=== PATIENT | male | born 1945 | race Caucasian/White ===

== ENCOUNTER → 2016-11-23 | Outpatient (CLI) | payer MEDICARE, OTHER ==
[~2016-11-23] MED LIST: ACTI300C PO; ACYC400T PO; AKWASOL OU; AMBI5TAB PO; AMIL5TA PO; ASPI81TA21 PO; ATIV1TAB10 PO; AZIT250T3 PO; BENZ100C5 PO; BIOTSPR PO; CO Q100C10 PO; CORT10TA PO; CORT20TA PO; COZA50TA PO; DIOV320T PO; DITR1TAB PO; ENAB15TA PO; ERGO500014 PO; FLAXMIS XX; FLON0.054; FOLI1TAB2 PO; GAS-80CH PO; HYDR1OI TOP; IMAT100TAB PO; K-TA10TA2 PO; LACT3000 PO; LEVO1SOL3 PO; LEVO500T32 PO; LOPE2TAB3 PO; LOSA25TA8 PO; MAGN20IN4 IJ; MAGN20IN4 IV; MED REC COMPLETE XX; MEDR4TAB PO; METO25TAB PO; MG PLUS PROTEIN; MG PLUS PROTEIN PO; MULTCAP PO; MULTCAP11 PO; NITR0.4D6 TD; NOXA1TAB PO; PANT40TA2 PO; PENI50TA PO; PENT30IN INH; PHOS1TAB3 OR; PROT0.1O TOP; SIMV20TA2 PO; TACR0.5C3 PO; TACR1CAP3 PO; TESS100C PO; TOVI8TAB PO; TRAM50TA2 PO; TRIA1CR TOP; VFEN200T PO; VITA100037 PO; VITA200016 PO; VORI200T5 PO; ZOFR20TA PO; ZOFR8TAB PO; ZYRTTAB2 PO; [UNRECOGNIZED DRUG - CODE] INJ; [UNRECOGNIZED DRUG - CODE] IV
== END ==
LOC: M LAB 15:22
PROVIDERS: ATTEND Urology
DX: C61 Malignant neoplasm of prostate (principal)

== ENCOUNTER → 2016-12-12 | Outpatient (CLI) | payer MEDICARE, OTHER | LOC: M LAB 15:23 | PROVIDERS: ATTEND Family Medicine | DX: Z01.812 Encounter for preprocedural laboratory examination (principal); R82.99 Other abnormal findings in urine; N28.9 Disorder of kidney and ureter, unspecified ==

== ENCOUNTER 2016-12-25 12:45 | Outpatient (RCR) | payer MEDICARE, OTHER | END 2016-12-26 | LOC: M PT 12:45 | PROVIDERS: ATTEND Physician Assistant Medical | DX: Z51.89 Encounter for other specified aftercare (principal); C92.00 Acute myeloblastic leukemia, not having achieved remission; R53.81 Other malaise | CPT/HCPCS: 97110; 97140; 97161; G8978; G8979 ==

== ENCOUNTER 2017-01-23 09:45 | Outpatient (RCR) | payer MEDICARE, OTHER ==
[~2017-01-23 09:45] MED LIST changes: +AZIT-12 PO; -AZIT250T3 PO; -FOLI1TAB2 PO; +FOLI1TAB4 PO; -LEVO1SOL3 PO; +LEVO25SO PO; +LEVO500T3 PO; -LEVO500T32 PO; -ZYRTTAB2 PO; +ZYRTTAB8 PO
== END 2017-01-25 ==
LOC: M PT 09:45
PROVIDERS: ATTEND Physician Assistant Medical
DX: Z51.89 Encounter for other specified aftercare (principal); C92.00 Acute myeloblastic leukemia, not having achieved remission; R53.81 Other malaise; M62.81 Muscle weakness (generalized)
CPT/HCPCS: 97110; 97140; 97165; G8978; G8979; G8984; G8985

== ENCOUNTER → 2017-02-25 | Outpatient (RCR) | payer MEDICARE, OTHER | END | disposition home or self-care (01) | LOC: M PT 01-30 09:52 → M OT 02-06 08:45 → M PT 02-18 09:10 → M OT 02-20 09:00 | PROVIDERS: ATTEND Physician Assistant Medical | DX: Z51.89 Encounter for other specified aftercare (principal); C92.00 Acute myeloblastic leukemia, not having achieved remission; R53.81 Other malaise | CPT/HCPCS: 97010; 97110; 97140; G8978; G8979; G8980; G8984; G8985; G8986 ==

== ENCOUNTER → 2017-02-25 | Outpatient (CLI) | payer MEDICARE, OTHER ==
[~2017-02-25] MED LIST changes: +ALBUTEROL SULFATE 2.5 MG/0.5 ML INH NEB SOLN NEB ONE; +PENTAMIDINE ISETH NEB 300 MG SOLN VIAL INH ONE
== END ==
LOC: M CARPUL 14:05
PROVIDERS: ATTEND Internal Medicine Medical Oncology
DX: C93.00 Acute monoblastic/monocytic leukemia, not having achieved remission (principal); D84.9 Immunodeficiency, unspecified

== ENCOUNTER → 2017-03-15 | Outpatient (CLI) | payer MEDICARE, OTHER ==
[~2017-03-15] MED LIST changes: -ALBUTEROL SULFATE 2.5 MG/0.5 ML INH NEB SOLN NEB ONE; -PENTAMIDINE ISETH NEB 300 MG SOLN VIAL INH ONE
== END ==
LOC: M LAB 15:14
PROVIDERS: ATTEND Urology
DX: Z01.812 Encounter for preprocedural laboratory examination (principal); N32.81 Overactive bladder; R39.15 Urgency of urination

== ENCOUNTER → 2017-04-24 | Outpatient (CLI) | payer MEDICARE, OTHER ==
[~2017-04-24] MED LIST changes: +PENTAMIDINE ISETH NEB 300 MG SOLN VIAL INH ONE
== END ==
LOC: M CARPUL 14:55
PROVIDERS: ATTEND Internal Medicine Medical Oncology
DX: C93.00 Acute monoblastic/monocytic leukemia, not having achieved remission (principal)

== ENCOUNTER → 2017-06-06 | Outpatient (CLI) | payer MEDICARE, OTHER | LOC: M CARPUL 13:06 | PROVIDERS: ATTEND Internal Medicine Medical Oncology | DX: D89.811 Chronic graft-versus-host disease (principal); C92.91 Myeloid leukemia, unspecified in remission; E83.111 Hemochromatosis due to repeated red blood cell transfusions ==

== ENCOUNTER → 2017-07-04 | Outpatient (CLI) | payer MEDICARE, OTHER | LOC: M CARPUL 11:00 | PROVIDERS: ATTEND Internal Medicine Medical Oncology | DX: Z51.81 Encounter for therapeutic drug level monitoring (principal); Z79.899 Other long term (current) drug therapy ==

== ENCOUNTER 2017-12-27 13:12 | Outpatient (RCR) | payer MEDICARE, OTHER | END 2018-01-25 | LOC: M OT 01-01 13:13 → M PT 01-06 12:46 → M OT 01-08 12:58 → M PT 01-16 13:57 → M OT 13:12 → M PT 01-06 12:46 → M OT 13:12 | DX: Z51.89 Encounter for other specified aftercare (principal); Z94.81 Bone marrow transplant status | CPT/HCPCS: 97110 ==

== ENCOUNTER 2018-01-30 11:23 | Outpatient (RCR) | payer MEDICARE, OTHER | END 2018-02-25 | LOC: M PT 11:23 | DX: Z51.89 Encounter for other specified aftercare (principal); R53.1 Weakness; Z94.81 Bone marrow transplant status | CPT/HCPCS: 97110 ==

== ENCOUNTER → 2018-05-02 | Outpatient (REF) | payer MEDICARE, OTHER ==
[2018-05-02 18:47] LABS: AMORPHOUS SEDIMENT SMALL (NEGATIVE); APPEARANCE, URINE TURBID (CLEAR); BACTERIA, URINE AUTO NEGATIVE (NEGATIVE); BILIRUBIN, URINE AUTO NEGATIVE (NEGATIVE); BLOOD, URINE BLOOD 1+ (NEGATIVE); COLOR, URINE AMBER (YELLOW); GLUCOSE, URINE (UA) AUTO NEGATIVE (NEGATIVE); KETONE, URINE AUTO NEGATIVE (NEGATIVE); LEUKOCYTE ESTERASE, URINE AUTO NEGATIVE (NEGATIVE); MUCUS, URINE LARGE (NEGATIVE); NITRITE, URINE AUTO NEGATIVE (NEGATIVE); PROTEIN, URINE AUTO 2+ mg/dL (NEGATIVE); RBC, URINE AUTO 5 /HPF (0-3); SQUAMOUS EPITHELIAL CELL UR AU 0 /HPF (0-6); UROBILINOGEN, URINE AUTO 0.2 mg/dL (0.0-2.0); WBC, URINE AUTO 1 /HPF (0-3)
== END ==
LOC: M LAB REF 17:06
DX: Z01.818 Encounter for other preprocedural examination (principal)
CPT/HCPCS: 81001

== ENCOUNTER → 2018-05-19 | Outpatient (CLI) | payer MEDICARE, OTHER ==
[~2018-05-19] MED LIST changes: -ACTI300C PO; -ACYC400T PO; -AKWASOL OU; +ALBUTEROL SULFATE 2.5 MG/0.5 ML INH NEB SOLN INH; -AMBI5TAB PO; -AMIL5TA PO; -ASPI81TA21 PO; -ATIV1TAB10 PO; -AZIT-12 PO; -BENZ100C5 PO; -BIOTSPR PO; -CO Q100C10 PO; -CORT10TA PO; -CORT20TA PO; -COZA50TA PO; -DIOV320T PO; -DITR1TAB PO; -ENAB15TA PO; -ERGO500014 PO; -FLAXMIS XX; -FLON0.054; -FOLI1TAB4 PO; -GAS-80CH PO; -HYDR1OI TOP; -IMAT100TAB PO; -K-TA10TA2 PO; -LACT3000 PO; -LEVO25SO PO; -LEVO500T3 PO; -LOPE2TAB3 PO; -LOSA25TA8 PO; -MAGN20IN4 IJ; -MAGN20IN4 IV; -MED REC COMPLETE XX; -MEDR4TAB PO; -METO25TAB PO; -MG PLUS PROTEIN; -MG PLUS PROTEIN PO; -MULTCAP PO; -MULTCAP11 PO; -NITR0.4D6 TD; -NOXA1TAB PO; -PANT40TA2 PO; -PENI50TA PO; -PENT30IN INH; +PENTAMIDINE ISETH NEB 300 MG SOLN VIAL INH; -PENTAMIDINE ISETH NEB 300 MG SOLN VIAL INH ONE; -PHOS1TAB3 OR; -PROT0.1O TOP; -SIMV20TA2 PO; -TACR0.5C3 PO; -TACR1CAP3 PO; -TESS100C PO; -TOVI8TAB PO; -TRAM50TA2 PO; -TRIA1CR TOP; -VFEN200T PO; -VITA100037 PO; -VITA200016 PO; -VORI200T5 PO; -ZOFR20TA PO; -ZOFR8TAB PO; -ZYRTTAB8 PO; -[UNRECOGNIZED DRUG - CODE] INJ; -[UNRECOGNIZED DRUG - CODE] IV
== END ==
LOC: M CARPUL 10:46
DX: C90.00 Multiple myeloma not having achieved remission (principal)
CPT/HCPCS: 94640

== ENCOUNTER → 2018-06-17 | Outpatient (CLI) | payer MEDICARE, OTHER | LOC: M CARPUL 12:06 | DX: C90.00 Multiple myeloma not having achieved remission (principal) | CPT/HCPCS: 94640 ==

== ENCOUNTER → 2018-12-09 | Outpatient (CLI) | payer MEDICARE, OTHER ==
[~2018-12-09] MED LIST changes: +ACTI300C PO; +ACYC400T PO; +AKWASOL OU; -ALBUTEROL SULFATE 2.5 MG/0.5 ML INH NEB SOLN INH; +AMBI5TAB PO; +AMIL5TAB4 PO; +ASPI81TA21 PO; +ATIV1TAB10 PO; +AZIT-12 PO; +BENZ-18 PO; +BIOTSPR PO; +CO Q100C10 PO; +CORT10TA PO; +CORT20TA PO; +COZA50TA PO; +DIOV320T PO; +DITR1TAB PO; +ENAB15TA PO; +FLAXMIS XX; +FLON0.054; +FOLI1TAB11 PO; +GAS-80CH PO; +HYDR1OIN2 TOP; +IMAT100TAB PO; +INDA125TA PO; +K-TA10TA2 PO; +LACT3000 PO; +LEVO25SO PO; +LEVO500T3 PO; +LOPE-1 PO; +LOPE2TAB3 PO; +LOSA100T50 PO; +LOSA25TA14 PO; +MAGN20IN5 IJ; +MAGN20IN5 IV; +MED REC COMPLETE XX; +MEDR4TAB PO; +METO1TAB63 PO; +MG PLUS PROTEIN; +MG PLUS PROTEIN PO; +MULTCAP PO; +MULTCAP11 PO; +NITR0.4D6 TD; +NOXA1TAB PO; +PANT40TA3 PO; +PENI500T PO; +PENT30IN INH; -PENTAMIDINE ISETH NEB 300 MG SOLN VIAL INH; +PENTAMIDINE ISETH NEB 300 MG SOLN VIAL INH ONE; +PHOS1TAB3 OR; +PROT0.1O TOP; +SIMV20TA2 PO; +SING10TA32 PO; +SIRO1TAB PO; +SYMB16INH INH; +TACR0.5C3 PO; +TACR1CAP3 PO; +TESS100C PO; +TIOT18INH INH; +TOVI8TAB PO; +TRAM50TA2 PO; +TRIA0.1C60 TOP; +VFEN200T PO; +VITA100037 PO; +VITA200016 PO; +VITA500045 PO; +VORI200T PO; +ZOFR4TAB16 PO; +ZOFR8TAB24 PO; +ZYRTTAB8 PO; +[UNRECOGNIZED DRUG - CODE] INJ; +[UNRECOGNIZED DRUG - CODE] IV
== END ==
LOC: M CARPUL 09:57
PROVIDERS: ATTEND Internal Medicine Medical Oncology
DX: C90.00 Multiple myeloma not having achieved remission (principal)

== ENCOUNTER → 2018-12-29 | Outpatient (REF) | payer MEDICARE, OTHER ==
[~2018-12-29] MED LIST changes: -PENTAMIDINE ISETH NEB 300 MG SOLN VIAL INH ONE
[2018-12-29 13:20] LABS: APPEARANCE, URINE HAZY (CLEAR); BACTERIA, URINE AUTO NEGATIVE (NEGATIVE); BILIRUBIN, URINE AUTO NEGATIVE (NEGATIVE); BLOOD, URINE BLOOD NEGATIVE (NEGATIVE); COLOR, URINE YELLOW (YELLOW); GLUCOSE, URINE (UA) AUTO NEGATIVE (NEGATIVE); KETONE, URINE AUTO NEGATIVE (NEGATIVE); LEUKOCYTE ESTERASE, URINE AUTO NEGATIVE (NEGATIVE); MUCUS, URINE SMALL (NEGATIVE); NITRITE, URINE AUTO NEGATIVE (NEGATIVE); PROTEIN, URINE AUTO NEGATIVE (NEGATIVE); RBC, URINE AUTO 1 /HPF (0-3); SPECIFIC GRAVITY URINE AUTO 1.019 (1.002-1.035); SQUAMOUS EPITHELIAL CELL UR AU 0 /HPF (0-6); UROBILINOGEN, URINE AUTO 0.2 mg/dL (0.0-2.0); WBC, URINE AUTO 2 /HPF (0-3)
== END ==
LOC: M LAB REF 12:57
PROVIDERS: ATTEND Family Medicine
DX: Z01.818 Encounter for other preprocedural examination (principal); R35.1 Nocturia; N32.81 Overactive bladder

== ENCOUNTER 2018-12-30 10:33 | Outpatient (RCR) | payer MEDICARE, OTHER | END 2019-01-25 | LOC: M PT 10:33 | PROVIDERS: ATTEND Family Medicine | DX: R53.1 Weakness (principal) ==

== ENCOUNTER → 2019-01-07 | Outpatient (CLI) | payer MEDICARE, OTHER ==
[~2019-01-07] MED LIST changes: +PENTAMIDINE ISETH NEB 300 MG SOLN VIAL INH ONE
== END ==
LOC: M CARPUL 10:03
PROVIDERS: ATTEND Internal Medicine Medical Oncology
DX: C90.00 Multiple myeloma not having achieved remission (principal)

== ENCOUNTER → 2019-01-28 | Outpatient (CLI) | payer MEDICARE, OTHER ==
[~2019-01-28] MED LIST changes: -PENTAMIDINE ISETH NEB 300 MG SOLN VIAL INH ONE; +PENTAMIDINE ISETH NEB 300 MG SOLN VIAL INH SCH
== END ==
LOC: M CARPUL 09:58
PROVIDERS: ATTEND Internal Medicine Medical Oncology
DX: C90.00 Multiple myeloma not having achieved remission (principal)

== ENCOUNTER → 2019-02-10 | Outpatient (REF) | payer MEDICARE, OTHER ==
[~2019-02-10] MED LIST changes: -PENTAMIDINE ISETH NEB 300 MG SOLN VIAL INH SCH
[2019-02-10 13:43] LABS: APPEARANCE, URINE CLEAR (CLEAR); BACTERIA, URINE AUTO NEGATIVE (NEGATIVE); BILIRUBIN, URINE AUTO NEGATIVE (NEGATIVE); BLOOD, URINE BLOOD NEGATIVE (NEGATIVE); COLOR, URINE YELLOW (YELLOW); GLUCOSE, URINE (UA) AUTO NEGATIVE (NEGATIVE); KETONE, URINE AUTO NEGATIVE (NEGATIVE); LEUKOCYTE ESTERASE, URINE AUTO NEGATIVE (NEGATIVE); NITRITE, URINE AUTO NEGATIVE (NEGATIVE); PROTEIN, URINE AUTO NEGATIVE (NEGATIVE); RBC, URINE AUTO 0 /HPF (0-3); SPECIFIC GRAVITY URINE AUTO 1.014 (1.002-1.035); SQUAMOUS EPITHELIAL CELL UR AU 0 /HPF (0-6); UROBILINOGEN, URINE AUTO 0.2 mg/dL (0.0-2.0); WBC, URINE AUTO 0 /HPF (0-3)
== END ==
LOC: M LAB REF 12:32
PROVIDERS: ATTEND Family Medicine
DX: Z01.812 Encounter for preprocedural laboratory examination (principal); R82.998 Other abnormal findings in urine

== ENCOUNTER → 2019-05-06 | Outpatient (REF) | payer MEDICARE, OTHER ==
[~2019-05-06] MED LIST changes: -LOPE-1 PO; +LOPE-39 PO
[2019-05-06 19:21] LABS: APPEARANCE, URINE HAZY (CLEAR); BACTERIA, URINE AUTO NEGATIVE (NEGATIVE); BILIRUBIN, URINE AUTO NEGATIVE (NEGATIVE); BLOOD, URINE BLOOD NEGATIVE (NEGATIVE); COLOR, URINE YELLOW (YELLOW); GLUCOSE, URINE (UA) AUTO NEGATIVE (NEGATIVE); KETONE, URINE AUTO NEGATIVE (NEGATIVE); LEUKOCYTE ESTERASE, URINE AUTO NEGATIVE (NEGATIVE); MUCUS, URINE SMALL (NEGATIVE); NITRITE, URINE AUTO NEGATIVE (NEGATIVE); PROTEIN, URINE AUTO NEGATIVE (NEGATIVE); RBC, URINE AUTO 0 /HPF (0-3); SPECIFIC GRAVITY URINE AUTO 1.018 (1.002-1.035); SQUAMOUS EPITHELIAL CELL UR AU 0 /HPF (0-6); UROBILINOGEN, URINE AUTO 0.2 mg/dL (0.0-2.0); WBC, URINE AUTO 0 /HPF (0-3)
== END ==
LOC: M LAB REF 16:26
PROVIDERS: ATTEND Family Medicine
DX: Z01.812 Encounter for preprocedural laboratory examination (principal); R82.998 Other abnormal findings in urine

== ENCOUNTER → 2019-05-20 | Outpatient (REF) | payer MEDICARE, OTHER ==
[2019-05-20 13:34] LABS: RUBELLA IgG QUALITATIVE IMMUNE (IMMUNE)
[2019-05-21 14:10] LABS: MUMPS VIRUS IgG ANTIBODY 81.6 AU/mL (Immune >10.9)
== END ==
LOC: M LAB REF 11:57
DX: Z01.84 Encounter for antibody response examination (principal)

== ENCOUNTER → 2019-06-02 | Outpatient (CLI) | payer MEDICARE, OTHER ==
--- NOTE | 2019-06-02 14:45 | REP ---
CHEST X-RAY: Two views. HISTORY: Shortness of breath. Comparison chest x-ray December 21, 2015. FINDINGS: There is tenting and slight elevation of the right hemidiaphragm. The prior study in 2016 showed pneumonia in this region. However, there is a new pattern of volume loss in the upper lobes bilaterally with bilateral upper lobe pleuroparenchymal fibrosis which was not apparent in 2016. There is some new fullness in the aortopulmonary region of the left mediastinal contour. There are some areas of pleural thickening bilaterally in the upper lung mejia. No focal infiltrate is appreciated. No acute bony abnormality is seen. IMPRESSION: Bilateral upper lobe volume loss and interstitial and pleuroparenchymal fibrosis changes new since 2016 prior study. Fullness in the left mediastinum also a new finding. Tenting of the right hemidiaphragm. No definite focal infiltrate. Consider chest CT study, preferably with IV contrast. Electronically Signed by Mina Reed MD 06/02/2019 03:32 P
== END ==
LOC: M WUC 13:55
PROVIDERS: ATTEND Family Medicine
DX: R91.8 Other nonspecific abnormal finding of lung field (principal)

== ENCOUNTER 2019-06-16 14:58 | Outpatient (RCR) | payer MEDICARE, OTHER ==
--- NOTE | 2018-12-19 14:50 | MEDONC ---
MEDICAL ONCOLOGY/HEMATOLOGY FOLLOWUP DATE OF SERVICE: 12/15/2018 DIAGNOSES: 1. Secondary AML s/p MUD PBSCT in remission (d 0 07/02/14; see 12/06/2017 note for details). now 3.5 years post Tx; last RPCI visit 12/08/18 2. 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 3. Remote history of early stage prostate carcinoma status post radiation, radical prostatectomy for local recurrence, chronic artificial sphincter. 4. Osteoporosis/osteopenia secondary to leukemia previously on zoledronic acid now on denosumab q. 6 months (60 mg, Prolia). Most recent bone density 06/24/2017 at [facility] showing T-score negative 2.9 at total spine improved versus 2013; dual femur T-score negative 1.8, 11% drop versus 2016. OTHER PERTINENT MEDICAL PROBLEMS: CAD, S/P [place], Cholangitis Bladder spasms post radiation/prostatectomy CURRENT THERAPY: Denosumab 60 mg q. 6 months. Deferoxamine 1000 mg IM q. 4 weeks currently for three additional doses for ferritin greater than 1500. Inhalational pentamidine 300 mg q. 4 weeks. INTERVAL HISTORY: Sulaiman has returned for the summer. He is followed at [facility] in the winter and has traditionally followed at [facility] in the summer in addition to staying connected with our clinic for local treatment as needed such as his pentamidine and deferoxamine. He is asking about deferoxamine today due to hyperferritinemia. Labs from his recent visit at [facility] showed ferritin greater than 1500, and I recommended that we do three doses and then halt and followup iron labs a few months later. He is no longer receiving significant transfusions. No known history of hemochromatosis congenitally and off active transfusions this problem may resolve itself. Sulaiman is also now off posaconazole, off tacrolimus and sirolimus. He follows with Trinh Crespo'Brien for some skin carcinoma that he has treated regularly. Continues on monthly pentamidine. Dr. Olivia at [facility]. He reports feeling quite well. REVIEW OF SYSTEMS: In addition to pertinent positives and negatives as above, the patient denies new sweats, fevers, unintended weight loss, new shortness of breath, unusual infections or changes in bowel or bladder habits. Remainder of 12-system review negative. PHYSICAL EXAMINATION: Weight 65 kg, stable. Temperature 96.5. Blood pressure not recorded. Pulse ox 99%. Patient is a very slender, well-groomed gentleman, in no distress. Respiratory: Clear lungs to auscultation bilaterally anteriorly and posteriorly. Cardiac: S1, S2, regular rate and rhythm. Occasional ectopy. Abdomen: Soft, nontender, nondistended. No hepatosplenomegaly or mass. Extremities: No edema. Lymph nodes: No submandibular, cervical, supraclavicular or axillary adenopathy bilaterally. LABORATORY DATA: Recent labs from [facility] all within reasonable limits. We will repeat them today. IMPRESSION: Secondary AML diagnosed 2014 status post unrelated aloe stem cell transplant complicated by GI and skin GVHD, osteopenia/osteoporosis closely followed over many years by yareli Olivia at [facility] and at [facility] in [place], followed here in the summer. He is now completely off immunosuppressive and posaconazole. He is on denosumab 60 mg q. 6 months for osteoporosis, which is mildly improved at the spine worse at the femurs. He has evidence of recent hyperferritinemia we are treating on an as-needed basis with desferrioxamine injections following up the [facility] practice. Will give three treatments here, followed by a recheck of iron. He continues on prophylactic acyclovir, azithromycin in addition to his other medications. Clinically exam unremarkable today. PLAN: 1. Desferrioxamine and Prolia today. 2. Return for two additional monthly desferrioxamine doses. 3. Return in fall with iron studies 1 week prior, CBC, CMP. Sulaiman requested the possibility of following here only rather than traveling to [facility] in future. We would be happy to care for him but I will definitely need to pull in Dr. Olivia should there be any GVHD flare and refer him to Dr. Olivia for management of that going forward. Otherwise, we are more than happy to help him locally. Electronically Signed by Florencia Marroquin MD 12/24/2018 11:58 A DD: Florencia Marroquin MD 12/18/2018 07:31 P DT: herson 12/19/2018 02:14 P CC: MD Gopal Valdez MD
[~2019-06-16] VITALS: Ht 170.2 cm; Wt 62.8 kg
[~2019-06-16 14:58] MED LIST changes: +DEFEROXAMINE As Ordered ONE; +DEFEROXAMINE IM ONE; +DENOSUMAB 60MG/1ML SYRINGE (PROLIA) (J0897 PER 1MG) (FOR ONCOLOGY) SC ONE
[2019-06-16] MEDS ORDERED: PROL60SO SC (15:16)
[2019-06-16] MEDS ORDERED: BIOTLIQ9 MT (15:16)
[2019-06-16 15:17] VITALS: BP 115/75
[2019-06-16 15:21] LABS: BASO % 0.3 % (0.0-1.0); EOS # 0.3 10^3/uL (0.0-0.5); EOS % 2.1 % (0.0-3.0); HEMOGLOBIN 14.6 g/dl (13.5-17.5); LYMPH # 3.9 10^3/uL (1.5-5.0); LYMPH % 33.1 % (24.0-44.0); MEAN CORPUSCULAR HGB CONC 31.1 g/dl (32.0-36.5); MEAN CORPUSCULAR VOLUME 103.1 fl (80.0-96.0); MONO # 1.4 10^3/uL (0.0-0.8); MONO % 11.6 % (0.0-5.0); NEUTROPHILS # 6.2 10^3/uL (1.5-8.5); NEUTROPHILS % 52.6 % (36.0-66.0); PLATELET COUNT, AUTOMATED 264 10^3/uL (150-450); RED BLOOD COUNT 4.56 10^6/uL (4.30-6.10); WHITE BLOOD COUNT 11.8 10^3/uL (4.0-10.0)
[2019-06-16 15:48] LABS: ALBUMIN 3.1 GM/DL (3.2-5.2); ALT/SGPT 29 U/L (12-78); BILIRUBIN,TOTAL 0.3 MG/DL (0.2-1.0); BLOOD UREA NITROGEN 19 MG/DL (7-18); CALCIUM LEVEL 9.4 MG/DL (8.8-10.2); CARBON DIOXIDE LEVEL 34 MEQ/L (21-32); CHLORIDE LEVEL 102 MEQ/L (98-107); CREATININE FOR GFR 1.01 MG/DL (0.70-1.30); GLOMERULAR FILTRATION RATE > 60.0 (>42); GLUCOSE, FASTING 90 MG/DL (70-100); POTASSIUM SERUM 4.3 MEQ/L (3.5-5.1); SODIUM LEVEL 138 MEQ/L (136-145)
--- NOTE | 2019-06-18 07:27 | MEDONC ---
MEDICAL ONCOLOGY/HEMATOLOGY FOLLOWUP NOTE: DATE OF SERVICE: 06/16/2019 REASON FOR FOLLOWUP: AML status post bone marrow transplant. DIAGNOSIS: 1. Secondary AML status post matching unrelated donor transplant in remission since June 2014. He was seen in [facility]. The last visit to [facility] was in April 2019. 2. 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 3. Remote history of early stage prostate carcinoma status post radiation, radical prostatectomy for local recurrence, chronic artificial sphincter. 4. 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 Most recent bone density at [facility] showed T-score negative 2.9. Patient came for followup today with no major complaints. PHYSICAL EXAMINATION: Normal vitals. Chest shows normal breath sounds. No wheeze, rhonchi or crackles. Heart exam reveals normal S1, S2 with no murmur. Abdomen showed no tenderness or rigidity. No organomegaly. LABS: Lab showed white count 11.8, hemoglobin 14.6, hematocrit 47, MCV 103, and platelet 264. Sodium 138, potassium 4.3, chloride 102, BUN 19, creatinine 1, calcium 9.4. Normal liver function tests. IMPRESSION: Secondary AML diagnosed in 2013, status post unrelated bone marrow transplant complicated by GI and skin GVHD, osteopenia. Currently, he is off completely off all the immunosuppressive treatments. Will continue monitoring CBC. Patient is going to travel to [place] for the winter and he is going to be seen in November for further followup. He is going to continue Prolia every 6 months. Electronically Signed by Erne aDmian MD 06/18/2019 02:07 P DD: Eren Damian MD 06/16/2019 04:00 P DT: mo 06/18/2019 07:17 A CC:
== END 2019-06-16 15:00 | disposition home or self-care (01) ==
LOC: M ONCM 14:58
PROVIDERS: ATTEND Internal Medicine Medical Oncology
DX: C92.00 Acute myeloblastic leukemia, not having achieved remission (principal); D46.9 Myelodysplastic syndrome, unspecified; M81.0 Age-related osteoporosis without current pathological fracture; M85.80 Other specified disorders of bone density and structure, unspecified site; Z88.2 Allergy status to sulfonamides; Z88.8 Allergy status to other drugs, medicaments and biological substances; Z79.899 Other long term (current) drug therapy; M85.9 Disorder of bone density and structure, unspecified; M81.8 Other osteoporosis without current pathological fracture; Z85.46 Personal history of malignant neoplasm of prostate
CPT/HCPCS: 36415; 80053; 82728; 85027; 86735; 86762; 86765; 96372; G0463; J0895; J0897

== ENCOUNTER 2019-06-29 12:05 | Inpatient (IN) | payer MEDICARE, OTHER ==
[~2019-06-29] VITALS: Ht 172.7 cm; Wt 61.7 kg
[2019-06-29] VITALS (11 sets, daily range): BP systolic 104–140; BP diastolic 60–93
[~2019-06-29 12:05] MED LIST changes: +BIOTLIQ9 MT; -DEFEROXAMINE As Ordered ONE; -DEFEROXAMINE IM ONE; -DENOSUMAB 60MG/1ML SYRINGE (PROLIA) (J0897 PER 1MG) (FOR ONCOLOGY) SC ONE; +PROL60SO SC
[2019-06-29] MEDS ORDERED: ISOVUE-370 76% 100ML VIAL (Q9967) As Ordered ONE (12:26)
--- NOTE | 2019-06-29 13:13 | REP ---
Clinical: Post transplant pneumonitis. Technique: Axial contrast enhanced images from the thoracic inlet to the upper abdomen with coronal and sagittal re-formations using 75 ml Isovue 370 intravenous contrast material. Comparison: 06/08/2019. Findings: Large left pneumothorax with contralateral mediastinal shift along with pneumomediastinum and small right pneumothorax. Underlying COPD/emphysematous changes, bronchiectasis, fibrosis and scarring and small infiltrates involving the left upper lobe, right middle lobe and right lower lobe. Mediastinal structures including thoracic aorta, pulmonary vasculature and heart/pericardium are relatively normal in appearance. No obvious significant adenopathy. Surrounding osseous structures demonstrate osteopenia and degenerative changes without obvious trauma. Impression: 1. Large left tension pneumothorax causing mild mediastinal shift. 2. Pneumomediastinum and small right pneumothorax similar to prior. 3. Emphysematous changes and chronic pleuroparenchymal changes along with possible small subtle infiltrates. Electronically Signed by Zachary Davison MD 06/29/2019 01:05 P
[2019-06-29] MEDS ORDERED: MIDAZOLAM INJ 2 MG/2 ML VIAL (J2250) As Ordered ONE ×4 (13:30→14:41)
[2019-06-29] MEDS ORDERED: ACET-897 PO (13:53)
[2019-06-29] MEDS ORDERED: KCL 20MEQ IN D5/NS 1000ML 1,000 ML IV SCH (14:12)
[2019-06-29] MEDS ORDERED: LEVALBUTEROL 1.25 MG/0.5 ML CONCENTRATE NEB NEB PRN (14:15)
[2019-06-29] MEDS ORDERED: POLYVINYL ALCOHOL OPHTH SOLN 15 ML(LIQUITEARS) OU PRN (14:15)
[2019-06-29] MEDS ORDERED: PERCOCET 5MG/325MG TAB PO PRN ×2 (14:15)
[2019-06-29] MEDS ORDERED: ACETAMINOPHEN TAB 650MG DOSE (2X325MG) PO PRN (14:15)
[2019-06-29] MEDS ORDERED: BISACODYL 10 MG SUPP PR PRN (14:15)
[2019-06-29] MEDS ORDERED: LIDOCAINE 1% MDV 20ML VIAL As Ordered ONE ×2 (14:23→14:41)
[2019-06-29] MEDS ORDERED: flumazeniL 0.5 MG/5 ML VIAL As Ordered ONE ×2 (14:23→14:41)
[2019-06-29 14:31] LABS: BASO % 0.3 % (0.0-1.0); EOS # 0.1 10^3/uL (0.0-0.5); EOS % 0.7 % (0.0-3.0); HEMATOCRIT 45.7 % (42.0-52.0); HEMOGLOBIN 14.6 g/dl (13.5-17.5); LYMPH # 2.6 10^3/uL (1.5-5.0); LYMPH % 22.9 % (24.0-44.0); MEAN CORPUSCULAR HEMOGLOBIN 31.7 pg (27.0-33.0); MEAN CORPUSCULAR HGB CONC 31.9 g/dl (32.0-36.5); MEAN CORPUSCULAR VOLUME 99.3 fl (80.0-96.0); MONO # 1.6 10^3/uL (0.0-0.8); MONO % 14.1 % (0.0-5.0); NEUTROPHILS # 6.9 10^3/uL (1.5-8.5); NEUTROPHILS % 61.2 % (36.0-66.0); PLATELET COUNT, AUTOMATED 229 10^3/uL (150-450); WHITE BLOOD COUNT 11.3 10^3/uL (4.0-10.0)
[2019-06-29 14:33] LABS: BLOOD UREA NITROGEN 38 MG/DL (7-18); CALCIUM LEVEL 8.5 MG/DL (8.8-10.2); CARBON DIOXIDE LEVEL 27 MEQ/L (21-32); CHLORIDE LEVEL 107 MEQ/L (98-107); CREATININE FOR GFR 1.03 MG/DL (0.70-1.30); GLOMERULAR FILTRATION RATE > 60.0 (>42); GLUCOSE, FASTING 124 MG/DL (70-100); POTASSIUM SERUM 4.6 MEQ/L (3.5-5.1); SODIUM LEVEL 142 MEQ/L (136-145)
--- NOTE | 2019-06-29 15:26 | RO ---
DATE OF PROCEDURE: 06/29/2019 PREPROCEDURE DIAGNOSIS: Spontaneous left pneumothorax. POSTPROCEDURE DIAGNOSIS: Spontaneous left pneumothorax. PROCEDURE: Insertion of left lateral chest tube. SURGEON: Christopher Andrade MD FITTINGS FINISHER: ANESTHESIA: DESCRIPTION OF PROCEDURE: Under satisfactory moderate sedation achieved with 2 mg of Versed the patient was prepped and draped in the usual sterile fashion. An incision was made over the approximate fifth intercostal space and a tunnel was created into the chest. A #24 chest tube was placed and secured to the chest wall with #2 Tevdek suture. It was connected to the Pleur-evac with a large of rain of air. The patient tolerated the procedure well, and a chest x-ray is pending.
[2019-06-29] MEDS: PANTOPRAZOLE 40MG TAB (PROTONIX) PO SCH (15:55)
[2019-06-29] MEDS: NORCO, ANEXSIA 5/325MG TABLET (HYDROcodone/ACETAMINOPHEN) PO PRN ×2 (15:56→20:54)
[2019-06-29] MEDS: KETOROLAC 30 MG/ML VIAL (J1885) IV SCH ×2 (15:56→20:49)
[2019-06-29] MEDS ORDERED: LIDOCAINE 1% MDV 20ML VIAL SC ONE (16:15)
[2019-06-29] MEDS ORDERED: MIDAZOLAM INJ 2 MG/2 ML VIAL (J2250) IV ONE (16:15)
--- NOTE | 2019-06-29 16:20 | REP ---
CHEST, SINGLE VIEW: Single view of the chest was performed and compared to prior study of 06/02/2019. There is placement of a left chest tube. There is no pneumothorax. Bilateral fibrotic changes are again noted similar to prior study. Heart is not enlarged. Electronically Signed by Betito Robles MD 06/29/2019 04:25 P
--- NOTE | 2019-06-29 16:48 | HPE ---
DATE OF ADMISSION: 06/29/2019 The patient is seen at the urgent request of Dr. Marroquin for a pneumothorax. HISTORY OF THE PRESENT ILLNESS: The patient is a 73-year-old white male who is status post a stem cell transplant for AML and also has a remote history of prostate carcinoma, status post radiation and robotic prostatectomy. About 5 days ago, he started to feel increasingly short of breath. With that shortness of breath, he developed a cough but no real sputum production. He also developed discomfort in his left chest. His shortness of breath has continued, and he sought medical attention at oncology who ordered a CT scan with the concern that because of his immunosuppression, he may have been developing an infection. CT scan showed a large left-sided pneumothorax with a mild mediastinal shift along with a very small sliver of a right pneumothorax and mediastinal emphysema. He has a history of having developed ybvrf-jjuczd-tjfz disease that has become chronic in nature. He is a former smoker having stopped in the 1970s, smoked about a pack a day of Marlboros. He was placed on ranitidine approximately 3 weeks ago and developed severe nausea and vomiting such that he stopped taking it. PAST MEDICAL HISTORY: The above malignancies with pqxjx-lmgkrn-agae disease along with what is thought to be gastroesophageal reflux disease (GERD) or mggwz-bdcsrw-vvcb disease gastrointestinal (GI) involvement, along with skin and ocular involvement. History of remote myocardial infarction. SURGERIES: Two hernias, bilateral detachments with full return of his vision. MEDICATIONS AT HOME: - Tylenol 500 mg every 4 hours as needed for pain - Symbicort 160-4.5 two puffs twice a day - vitamin D3 4000 units nightly - Prolia 60 mg subcu every 6 months - loperamide 2 mg by mouth as needed for diarrhea. - Singulair 10 mg by mouth nightly - Zofran 8 mg by mouth three times a day as needed for nausea or vomiting - Artificial Tears two drops daily as needed for dry eyes - Biotene 1 liquid mouthwash as needed for dry mouth - Spiriva 18 mcg nightly one inhalation a day - tramadol 50 mg four times a day as needed for pain TRAVEL HISTORY: He has been to [facility], [facility]. EXPOSURES: No dogs, birds, cats at home. OCCUPATIONAL HISTORY: Owns a carpet store. No known asbestos exposure. HABITS: The above smoking history. He does not imbibe alcohol anymore; he used to have a glass of wine for dinner. No illicit drugs. REVIEW OF SYSTEMS: CONSTITUTIONAL: Does not complain of fever, chills, sweats or night sweats. EYES: Without diplopia, without amaurosis fugax, without prior jaundice. NOSE: Without epistaxis. MOUTH: Has his own teeth. RESPIRATORY: See history of the present illness. CARDIAC: See history of the present illness. Has a history of myocardial infarction in the remote past. Without intermittent claudication and without recent peripheral edema. GASTROINTESTINAL: With the above nausea and vomiting. No diarrhea or constipation. No melena, hematochezia, or hematemesis. GENITOURINARY: Has a penile pump for urinating implanted in his testicle. Without hematuria. NEUROLOGIC: Without paresthesias, paralyses, or prior seizures. HEMATOLOGIC: Without prolonged bleeding times. PSYCHIATRIC: Without pathological anxieties, depressions, or psychoses. ENDOCRINE: Without diabetes, without thyroid disease. PHYSICAL EXAMINATION: VITAL SIGNS: Temperature is 98.0 with a heart rate of 87 and is sinus rhythm, respiratory rate of 18 without the use of accessory muscles whose blood pressure is 115/75 with a saturation of 92% on room air. Prior to placing the chest tube, he had a respiratory rate of 28. EYES: Pupils equal, round and reactive to light. Extraocular motions are intact. Sclerae nonicteric. NOSE: Without deformity. HEAD: Normocephalic. MOUTH: Shows mucous membranes to be pink but dry. Teeth are in good repair. NECK: Neck is supple. There is no jugular venous distention. No subcutaneous emphysema. Trachea is midline. There is no lymphadenopathy or thyromegaly. He has 2+ carotid upstrokes without bruits. LUNGS: Show markedly decreased breath sounds on the left with hyperresonant percussion on the left. I hear no wheezes, rhonchi or rales, however. CARDIAC: Cardiac exam is without murmurs, clicks, gallops or rubs. I cannot feel his point of maximum impulse (PMI). S1, S2 are normal. ABDOMEN: Soft, nontender. Bowel sounds are positive. There is no hepatomegaly. No costovertebral angle tenderness. EXTREMITIES: Show no pretibial edema. No calf tenderness. No differential swelling of the upper extremities. SKIN: Warm, dry and perfused without cyanosis or mottling, including that of the nail beds and the knees. NEUROLOGIC: Shows II-XII intact along with gross motor and gross sensation intact. Gait is not tested. PSYCHIATRIC: Shows him to be awake and alert, oriented times three with appropriate mood and affect and conversational. White count today is 11.3 with a hemoglobin and hematocrit of 14.6 and 45.7 respectively. Platelet count is 229 and differential shows 61% neutrophils, 22% lymphocytes, 14% monocytes. There are no immature forms. No toxic granulations. Chemistries today showed normal electrolytes with a BUN and creatinine of 38 and 1.03, a glucose of 124, and a calcium of 8.5. His chest CT shows the above findings. He has emphysematous changes and actual bronchiectatic changes. He has what looks to be left upper lobe adhesions to the anterior chest wall. There are also numerous what look to be nodular inflammatory infiltrates scattered throughout the right lung. There is air in the mediastinum. The nodular densities, which are rather spiculated, looked to be inflammatory, and the right upper lobe dominant finding is bronchiectatic bronchus. There is no pericardial effusion. The adrenals have a normal configuration. There is no mediastinal lymphadenopathy, and the liver looks to have a normal configuration without lesions. IMPRESSION: 1. Left pneumothorax, moderate to severe. 2. Right pneumothorax, very small and almost trivial. 3. Mediastinal emphysema. 4. AML, status post stem cell graft. 5. History of dqoyy-reqwsv-hqhs disease. 6. Prior history of remote prostate cancer. PLAN AND DISCUSSION: I will immediately place a chest tube. Because of the adhesions in the upper left chest, I will place a lateral chest tube rather than an anterior chest tube. This may have been a result of nausea and vomiting with a forced Valsalva against a closed glottis resulting in subcutaneous emphysema with a ruptured bleb into the pleura causing the pneumothorax on the left and the small one on the right.
[2019-06-29] MEDS: ceFAZolin SOD 1 GM in D5W MINI-BAG PLUS 50 ML IV SCH (18:31)
[2019-06-29] MEDS: TIOTROPIUM INHALER/CAPSULE (SPIRIVA) INH SCH (19:59)
[2019-06-29] MEDS: SYMBICORT 160/4.5MCG INHALER 6GM INH SCH (19:59)
[2019-06-29] MEDS: LEVALBUTEROL 1.25 MG/0.5 ML CONCENTRATE NEB NEB SCH (19:59)
[2019-06-29] MEDS: VITAMIN D 1,000 INTERNATIONAL UNITS TABLET PO SCH (20:47)
[2019-06-29] MEDS: DOCUSATE SODIUM 100 MG CAP PO SCH (20:48)
[2019-06-29] MEDS: MONTELUKAST 10 MG TAB PO SCH (20:54)
[2019-06-29] MEDS ORDERED: HEPARIN SOD (PORCINE) 5000 UNITS/ML VIAL SC SCH (21:00)
[2019-06-29] MEDS ORDERED: SLF 3 ML SYR IV PRN (23:45)
[2019-06-30] VITALS (44 sets, daily range): BP systolic 74–138; BP diastolic 35–95
[2019-06-30] MEDS: LEVALBUTEROL 1.25 MG/0.5 ML CONCENTRATE NEB NEB SCH ×4 (01:22→19:53)
[2019-06-30] MEDS: ceFAZolin SOD 1 GM in D5W MINI-BAG PLUS 50 ML IV SCH ×2 (02:00→10:43)
[2019-06-30] MEDS ORDERED: diltiaZEM 125 MG in NS 100 ML IV SCH (05:00)
[2019-06-30 05:22] LABS: BASO # 0.1 10^3/uL (0.0-0.2); BASO % 0.5 % (0.0-1.0); EOS # 0.1 10^3/uL (0.0-0.5); EOS % 0.7 % (0.0-3.0); HEMOGLOBIN 16.2 g/dl (13.5-17.5); LYMPH # 2.9 10^3/uL (1.5-5.0); LYMPH % 19.5 % (24.0-44.0); MEAN CORPUSCULAR HEMOGLOBIN 31.7 pg (27.0-33.0); MEAN CORPUSCULAR HGB CONC 31.2 g/dl (32.0-36.5); MEAN CORPUSCULAR VOLUME 101.8 fl (80.0-96.0); MONO # 1.1 10^3/uL (0.0-0.8); MONO % 7.5 % (0.0-5.0); NEUTROPHILS # 10.6 10^3/uL (1.5-8.5); NEUTROPHILS % 70.8 % (36.0-66.0); PLATELET COUNT, AUTOMATED 218 10^3/uL (150-450); RED BLOOD COUNT 5.11 10^6/uL (4.30-6.10); WHITE BLOOD COUNT 14.9 10^3/uL (4.0-10.0)
[2019-06-30 05:45] LABS: BLOOD UREA NITROGEN 37 MG/DL (7-18); CALCIUM LEVEL 8.4 MG/DL (8.8-10.2); CARBON DIOXIDE LEVEL 22 MEQ/L (21-32); CHLORIDE LEVEL 109 MEQ/L (98-107); CREATININE FOR GFR 1.22 MG/DL (0.70-1.30); GLOMERULAR FILTRATION RATE > 60.0 (>42); GLUCOSE, FASTING 215 MG/DL (70-100); POTASSIUM SERUM 5.2 MEQ/L (3.5-5.1); SODIUM LEVEL 139 MEQ/L (136-145)
[2019-06-30 05:57] LABS: MAGNESIUM LEVEL 1.8 MG/DL (1.8-2.4); NT-PRO BNP 1616 PG/ML (<450); THYROID STIMULATING HORMONE 0.559 uIU/ML (0.358-3.740); TROPONIN I < 0.02 NG/ML (< 0.10)
[2019-06-30] MEDS ORDERED: ENOXAPARIN 100MG/1ML SYRINGE (J1650) SC SCH (06:00)
[2019-06-30 06:10] LABS: ABG BASE EXCESS -7.3 (-2.0-2.0); ABG HCO3 16.4 MEQ/L (22.0-26.0); ABG PARTIAL PRESSURE CO2 29.5 mmHg (35.0-45.0); ABG PARTIAL PRESSURE O2 69.8 mmHg (75.0-100.0); ABG STANDARD HCO3 18.6 MEQ/L (22.0-26.0); ABG TOTAL CO2 17.3 MEQ/L (23.0-31.0); ABG pH (ARTERIAL) 7.363 UNITS (7.350-7.450)
[2019-06-30 06:14] LABS: INR 1.22; PROTHROMBIN TIME 15.1 SECONDS (11.8-14.0)
[2019-06-30] MEDS: KETOROLAC 30 MG/ML VIAL (J1885) IV SCH ×2 (06:23→10:47)
[2019-06-30] MEDS: PIPERACILLIN/TAZOBACTAM SOD 4.5 GM in D5W MINI-BAG PLUS 50 ML IV SCH ×3 (06:23→17:42)
[2019-06-30] MEDS: BENZONATATE 100 MG CAP PO SCH ×3 (06:24→21:14)
[2019-06-30] MEDS: SLF 3 ML SYR IV SCH ×3 (06:25→22:47)
[2019-06-30] MEDS ORDERED: LR 1,000 ML IV ONE ×2 (06:30→07:30)
--- NOTE | 2019-06-30 06:30 | CR.PDOC ---
General Date of Consultation: Jun 30, 2019 Referring Provider: TEDDY HERNANDEZ MD Consultation TIME OF SERVICE: 4:05 AM REASON FOR CONSULT: tachycardia and cough CHIEF COMPLAINT: Cough HISTORY OF PRESENT ILLNESS: This is a 73-year-old male who developed shortness of breath 5 days ago associated with dry cough and left chest discomfort. CT scan revealed a large left-sided pneumothorax with mild mediastinal shift. Therefore, he had a left lateral chest tube placed on June 29 and was admitted to the general medical floor. Per discussion with Dr. Andrade this morning at around 3:30, patient developed persistent cough associated with mild shortness of breath. He denied having chest pain or dizziness. Per discussion with his nurse , the patient's heart rate persistently been between 150s to 180, therefore, an EKG and chest x- ray were ordered. Per Dr. Andrade the patient appears to have a new right lower lobe pneumonia & sputum cultures been ordered. REVIEW OF SYSTEMS: 12 point review of systems negative except as listed in HPI PAST MEDICAL/ SURGICAL HISTORY: AML status post stem cell transplant History of axhwa-dsdrsj-kncs disease. Remote history of prostate cancer status post radiation therapy and prostatectomy , and placement of artificial urinary sphincter Emphysema. GERD. Remote history of chronic CAD/NC Status post hernia repair. History of bilateral retinal detachment and repair SOCIAL HISTORY: He quit smoking in 1976 Does not drink alcohol. Does not use recreational drugs Retired in 2010 FAMILY HISTORY: His mother had colon cancer. One of his brothers had double bypass, another brother had triple bypass & another brother had quadruple bypass ALLERGIES: Please see below. HOME MEDICATIONS: Please see below. PHYSICAL EXAMINATION: VITAL SIGNS: Please see below. GENERAL APPEARANCE: Well-nourished, well-developed, appears slightly anxious HEENT: Normocephalic, atraumatic, nasal cannula in place, mucous membranes slightly dry CARDIOVASCULAR: Heart rate is tachycardic. Unable to appreciate murmurs, rubs or gallops. Radial pulses are bounding and regular. Extremities are warm and well- perfused. There is no lower extremity edema LUNGS:. He is unable to speak full sentences without having to stop to take a breath. He is coughing frequently during the exam. Chest tube at the left lateral side is in place and incision area IS covered with clean and dry dressings. There is equal air entry bilaterally. I'm unable to appreciate wheezing or rhonchi. ABDOMEN: Bowel sounds are hypoactive. Abdomen is soft and nontender on palpation MUSCULOSKELETAL:. Range is intact in all 4 extremities NEUROLOGICAL: Cranial nerves II-12 are grossly intact. PSYCHIATRIC: Alert and oriented. Able to understand and follow commands LABORATORY DATA: See below. IMAGING: Chest x-ray done on June 30 shows right-sided lesion, but the final report is pending ASSESSMENT: Mr. Culp is a 73-year-old male with a past history of AML, rmumd-ssnjct-ubmh disease, remote history of prostate cancer, & emphysema, who was admitted yesterday for management of left-sided pneumothorax; his course has been complicated by the development of atrial flutter/fibrillation and right-sided pneumonia. PLAN: 1. New onset Atrial flutter/fibrillation EKG and telemetry strips from June 30 reviewed. EKG from January 2008 showed normal sinus rhythm. Triggers risk factors include underlying emphysema, pneumonia & Xopenex Potassium and calcium were within normal limits yesterday Plan: transfer to ICU/telemetry/start Cardizem drip / follow-up troponin, d- dimer, BNP, TSH, & magnesium, echocardiogram /discontinue heparin (first dose was to be administered tonight) & start treatment dose Lovenox / consulted Dr. Tobar 2. Sepsis secondary to right-sided pneumonia. SIRS criteria include leukocytosis, tachycardia and tachypnea. He also has nondiabetic hyperglycemia Visualized chest x-ray NEW2S Score = 10 points = red score Plan: telemetry / initiate Sepsis protocol w serial FSBS / continuous pulse ox & supplemental O2 / f/u lactic acid, VGB, sputum cx and blood cx/ 2L bolus / start zosyn and amphotericin for fungal coverage bc of hx of graft vs host dz (the day time team may consider consulting ID) / Acetaminophen PRN for fever / Tessalon pears for cough / target MAP 65 to 70 mmHG / f/u Is and Os with target UOP of at least 0.5 ml/kg/H / target serum glucose 140-180 while acutely ill / he can follow up with his PCP for vaccines once the PNA has resolved Rest per primary team. Thank you for consulting us, we will continue to follow this patient with you. Vital Signs/I&O Vital Signs Date Time Temp Pulse Resp B/P (MAP) Pulse Ox O2 Delivery O2 Flow Rate FiO2 06/30/19 05:39 136 91/64 06/30/19 03:30 97.8 20 96 Nasal Cannula 3.0 I&O- Last 24 Hours up to 6 AM 06/30/19 06:00 Intake Total 1165 ml Output Total 188 ml Balance 977 ml Laboratory Data Labs 24H Laboratory Tests 2 06/29/19 13:45: Immature Granulocyte % (Auto) 0.8, Neutrophils (%) (Auto) 61.2, Lymphocytes (%) (Auto) 22.9L, Monocytes (%) (Auto) 14.1H, Eosinophils (%) (Auto) 0.7, Basophils (%) (Auto) 0.3, Neutrophils # (Auto) 6.9, Lymphocytes # (Auto) 2.6, Monocytes # (Auto) 1.6H, Eosinophils # (Auto) 0.1, Basophils # (Auto) 0.0, Nucleated Red Blood Cells % (auto) 0.0, Anion Gap 8, Glomerular Filtration Rate > 60.0, Calcium Level 8.5L 06/30/19 05:03: Immature Granulocyte % (Auto) 1.0, Neutrophils (%) (Auto) 70.8H, Lymphocytes (%) (Auto) 19.5L, Monocytes (%) (Auto) 7.5H, Eosinophils (%) (Auto) 0.7, Basophils (%) (Auto) 0.5, Neutrophils # (Auto) 10.6H, Lymphocytes # (Auto) 2.9, Monocytes # (Auto) 1.1H, Eosinophils # (Auto) 0.1, Basophils # (Auto) 0.1, Nucleated Red Blood Cells % (auto) 0.0, Anion Gap 8, Glomerular Filtration Rate > 60.0, Calcium Level 8.0L, Phosphorus Level 3.0, Magnesium Level 1.8, Troponin I < 0.02, PS-Zqn-I-Type Natriuretic Peptide 1616H, Thyroid Stimulating Hormone (TSH) 0.559 06/30/19 05:58: Blood Gas Bicarbonate Standard 18.6L, Arterial Blood pH 7.363, Arterial Blood Partial Pressure CO2 29.5L, Arterial Blood Partial Pressure O2 69.8L, Arterial Blood Total CO2 17.3L, Arterial Blood HCO3 16.4L, Arterial Blood Base Excess - 7.3L, Arterial Blood Oxygen Saturation 95.0 CBC/BMP Laboratory Tests 06/29/19 13:45 06/30/19 05:03 Allergies Coded Allergies: Sulfa (Sulfonamide Antibiotics) (Verified Allergy, Intermediate, SWELLING, 04/13/19) ranitidine (Verified Adverse Reaction, Unknown, NAUSEA / VOMITTING, 06/29/19) Home Medications Scheduled Budesonide/Formoterol (Symbicort 160-4.5 Mcg Inhaler) 6 Gm Hfa.aer.ad, 2 PUFF INH BID, (Reported) Cholecalciferol (Vitamin D3) (Vitamin D3) 2,000 Unit Cap, 4,000 UNIT PO QHS, (Reported) Denosumab Injection (Prolia) 60 Mg/1 Ml Syringe, 60 MG SC ASDIRECTED, (Reported) EVERY SIX MONTHS Montelukast Sodium (Singulair) 10 Mg Tablet, 10 MG PO QHS, (Reported) Tiotropium [place] Monohydrate (Spiriva) 18 Mcg Cap.w.dev, 18 MCG INH QHS, (Reported) Scheduled PRN Acetaminophen (Tylenol Extra Strength) 500 Mg Tablet, 500 MG PO QID PRN for PAIN, (Reported) Loperamide HCl (Imodium A-D) 2 Mg Capsule, 2 MG PO PRN PRN for DIARRHEA, (Repor cristian) Ondansetron HCl (Zofran) 8 Mg Tab, 8 MG PO TID PRN for NAUSEA OR VOMITING, (Reported) Polyvinyl Alcohol ([place] Tears) 1.4 % Jina, 2 DROP OU QID PRN for DRY EYES, (Reported) Saliva Substitute Combo No.9 (Biotene) 237 Ml Mouthwash, 1 LIQ MT PRN PRN for DRY MOUTH, (Reported) Tramadol HCl (Tramadol HCl) 50 Mg Tab, 50 MG PO QID PRN for PAIN, (Reported) KAIA AGUILAR MD Jun 30, 2019 06:30
[2019-06-30 06:32] LABS: D-DIMER QUANT > 4000 ng/ml (<500)
[2019-06-30] MEDS ORDERED: NS 1,000 ML IV ONE (07:15)
[2019-06-30] MEDS: PHENYLEPHRINE HCL INJ 50 MG in D5W 495 ML IV SCH ×2 (07:30→20:04)
[2019-06-30] MEDS ORDERED: PHENYLEPHRINE INJ 10MG/ML VIAL (J2370) As Ordered ONE (07:47)
--- NOTE | 2019-06-30 07:53 | REP ---
Clinical: Cough. Status post chest tube for pneumothorax. Comparison: 06/29/2019. Findings: Left-sided chest tube in stable position. No obvious residual pneumothorax is appreciated. Lung mejia demonstrate diffuse chronic fibrosis and scarring. Superimposed left perihilar and bilateral lower lobe (right greater than left)alveolar infiltrates are suspected. No obvious effusion. Cardiac silhouette is normal. Skeletal structures appear intact. Impression: 1. Chest tube in satisfactory position. No obvious residual pneumothorax. 2. Superimposed perihilar and lower lobe (right greater than left) alveolar infiltrate suggested. Electronically Signed by Zachary Davison MD 06/30/2019 07:44 A
--- NOTE | 2019-06-30 08:19 | REP ---
Single view chest: 06/30/2019. Indication: Pneumothorax. Comparison: Earlier the same day. Findings: Left-sided chest tube is unchanged in position. No significant pneumothorax is detected. The study is otherwise unchanged. Impression: Left-sided chest tube without pneumothorax. Electronically Signed by Manny Redman DO 06/30/2019 08:10 A
[2019-06-30] MEDS: NS 1,000 ML IV SCH ×3 (08:29→20:04)
--- NOTE | 2019-06-30 08:49 | REP ---
Clinical: Status post central line placement. Comparison: 06/30/2019 at 07:52 a.m.. Findings: Left IJ line with tip in the SVC. Left chest tube in stable position. Diffuse bilateral pleuroparenchymal changes suspected superimposed acute left upper lobe, left retrocardiac and right lower lobe opacities again suspected. No obvious residual pneumothorax. No definite effusion. Cardiac silhouette is normal/stable. Visualized skeletal structures are stable. Impression: Left IJ line with tip in the SVC. No obvious acute pneumothorax. Electronically Signed by Zachary Davison MD 06/30/2019 08:41 A
[2019-06-30] MEDS: SYMBICORT 160/4.5MCG INHALER 6GM INH SCH ×2 (09:23→19:54)
--- NOTE | 2019-06-30 09:30 | REP ---
Clinical: Rule out pneumothorax. Comparison: 06/29/2019, 06/08/2019. Findings: Left-sided chest tube courses along the posterior left hemithorax and a small amount of subcutaneous emphysema is identified at the insertion site. A small area of pneumothorax along the anterior left apex and small residual areas of pneumothorax at the anterior left base are appreciated which are considerably decreased/improved as compared to 06/29/2019. Small amount of pneumomediastinum extending from the level of the thoracic inlet to the anterior mediastinal base anterior to the heart and pericardium and tiny sliver of pneumothorax along the anterior right upper hemithorax remain essentially stable as compared through 06/08/2019. The current examination demonstrates new significant patchy lower lobe consolidations and small pleural effusions which represent new findings as compared to 06/29/2019. Underlying chronic lung disease remains unchanged. The thoracic aorta, pulmonary vasculature and heart/pericardium remains stable. A left internal jugular central catheter extends to the confluence of the brachiocephalic vein and superior vena cava. Osseous structures demonstrate stable osteopenia and degenerative changes. Impression: 1. Left-sided pneumothorax is significantly improved. Small pneumomediastinum and sliver of right anterior apical pneumothorax remains stable as compared with 06/08/2019 and may represent chronic findings. 2. Chronic pleuroparenchymal changes are again noted. 3. Considerable superimposed bilateral lower lobe consolidations and small pleural effusions have formed since 06/29/2019. Electronically Signed by Zachary Davison MD 06/30/2019 09:21 A
[2019-06-30] MEDS: DOCUSATE SODIUM 100 MG CAP PO SCH ×2 (10:43→20:03)
[2019-06-30] MEDS: PANTOPRAZOLE 40MG TAB (PROTONIX) PO SCH (10:44)
[2019-06-30] MEDS: MOM 30ML SUSPENSION UDC PO SCH (10:44)
[2019-06-30] MEDS: SODIUM CHLORIDE HYPERTONIC 3% 15ML NEB SOL INH SCH ×3 (11:33→19:53)
[2019-06-30 12:08] LABS: ALT/SGPT 20 U/L (12-78); BILIRUBIN,TOTAL 0.7 MG/DL (0.2-1.0); BLOOD UREA NITROGEN 38 MG/DL (7-18); CALCIUM LEVEL 7.1 MG/DL (8.8-10.2); CARBON DIOXIDE LEVEL 22 MEQ/L (21-32); CHLORIDE LEVEL 113 MEQ/L (98-107); CREATININE FOR GFR 1.35 MG/DL (0.70-1.30); GLOMERULAR FILTRATION RATE 54.8 (>42); GLUCOSE, FASTING 158 MG/DL (70-100); MAGNESIUM LEVEL 1.7 MG/DL (1.8-2.4); PHOSPHORUS LEVEL 2.6 MG/DL (2.5-4.9); POTASSIUM SERUM 4.7 MEQ/L (3.5-5.1); SODIUM LEVEL 142 MEQ/L (136-145); TOTAL PROTEIN 5.2 GM/DL (6.4-8.2); TROPONIN I < 0.02 NG/ML (< 0.10)
--- NOTE | 2019-06-30 14:57 | IPN ---
DATE: 06/30/2019 Mr. Culp initially did well after his chest tube insertion for his spontaneous pneumothorax. However, at around 4 o'clock in the morning I received a call indicating that he had a bout of nausea along with vomiting and then transitioned into atrial fibrillation with rapid ventricular response and accompanied by unremitting paroxysms of coughing. I therefore asked the hospitalist service to consult on him for his RVR. The patient became hypotensive and was known to have been dehydrated prior to placing the chest tube as his BUN was elevated was elevated to 38 with essentially a normal creatinine. He became hypotensive and was given additional volume along with peripheral Jimy-Synephrine. Prior to becoming hypotensive he was started on a Cardizem drip to control his atrial fibrillation and rapid ventricular response. A CT earlier this morning showed bilateral infiltrates which were no present yesterday. His vital signs show a T-max of 100.4 with a heart rate that ranges now between 118 and 108, now back in sinus rhythm. Blood pressure is now ranging between 92/58 to 85/57 and he is 89-94% saturated on 4 liters nasal cannula with a respiratory rate of 36-34, however without the use of accessory muscles. His intake and output the past 24 hours has been recorded as 1165 in and 138 out. He has put 38 mL out the chest tube and there is no air leak. He weighs 58 kg today. On physical examination, he has inspiratory rales and rhonchi at the bases. Percussion notes are full to the diaphragm however. I hear bronchophony in the left lower base. He also has E to A egophony, mild, at both bases. Cardiac exam is without murmurs, clicks, gallops or rubs. I cannot feel his point of maximal impulse (PMI). S1 and S2 are normal. Abdomen is soft and nontender. Bowel sounds are positive. There is no hepatomegaly. No costovertebral angle (CVA) tenderness. Extremities show no pretibial edema. No calf tenderness. No differential swelling of the upper extremities. Skin is warm, dry and perfused without cyanosis or mottling including that of the nail beds and the knees. Neck is supple. There is no jugular venous distention. No subcutaneous emphysema. Trachea is midline. Mouth shows his mucous membranes to be pink and moist. Lips and commissures are without lesions. There is no thrush. Eyes show his pupils to be equal, reactive. Extraocular motors are intact. Sclera nonicteric. Neuro shows II through XII intact, along with gross motor and gross sensation intact. Gait is not tested. Psychiatric shows him to be awake and alert, oriented times three with appropriate mood, affect and conversational. His white count this morning is up to 14.9 from 11.8 yesterday. Hemoglobin and hematocrit are 16.2 and 52.0, again up from 14.6 and 47.0 yesterday afternoon. Platelet count is 218 and differential shows 70% neutrophils, 19% lymphocytes, 7% monocytes. There are no immature forms, no toxic granulations as of yet. His electrolytes early this morning showed a potassium of 5.2, with a BUN and creatinine of 37 and 1.22, a glucose of 250 and a calcium of 8.4. His lactate done earlier this morning was 4.1 and it has now decreased to 2.3. His electrolytes earlier this morning were essentially unchanged with improvement in his potassium to 4.7 with a BUN and creatinine of 38 and 1.35 and a glucose of 158 and a calcium of 7.8 with a corresponding albumin of 2.0 with normal liver functions. Magnesium is 1.7. His chest x-ray done at 4:30 in the morning showed a new right lower lobe infiltrate. Chest tube was in good place with the lung fully expanded to the chest wall with clear costophrenic angles. He also had patchy infiltrates in the lateral portion of the right lower lobe. The chest x-ray repeated at 8:23 a.m. showed multiple patchy infiltrates particularly in the right lower lobe. Chest CT done without contrast at around 9 o'clock shows a small residual pneumothorax at the top of the left lung. More significant however, he has bilateral infiltrates in the lower bases of both the right and left lower lobes. These are markedly changed from yesterdays CT where he was found to have the pneumothorax. IMPRESSION: 1. Spontaneous pneumothorax left side. 2. Small right pneumothorax continuing but smaller. 3. Emphysema. 4. 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 6. Prior history of remote prostate cancer. 7. Bilateral lower lobe infiltrates. 8. Hypotension. 9. Lactic acidemia. PLAN AND DISCUSSION: It looks as though he had copious amounts of vomiting last night after by mouth intake and indeed reports having inhaled some of his vomit. This looks like a classic case of aspiration pneumonia. I have asked the medical service to actively participate in his care as his pneumothorax is the least of his worries at this point in time. I ordered a sputum culture yesterday which is not back yet and a blood culture is pending. He has been started on Zosyn and his Ancef from his chest tube insertion is being continued. We are awaiting the PCR for Methicillin-resistant Staphylococcus aureus (MRSA). I will stop his Toradol. As he is on Zosyn I will also stop the Ancef. I have informed Dr. Marroquin of his hospital course. Right now he is continuing on the Jimy-Synephrine, but at very low doses and he is being given more fluid. With the rise in his hematocrit I would expect him to start showing development of peripheral edema with transudation of fluid across the interstitium leading to volume depletion intravascularly.
[2019-06-30] MEDS: ONDANSETRON 4MG/2ML VIAL (J2405) IV PRN (17:42)
[2019-06-30] MEDS: TIOTROPIUM INHALER/CAPSULE (SPIRIVA) INH SCH (19:54)
[2019-06-30] MEDS: HEPARIN SOD (PORCINE) 5000 UNITS/ML VIAL SQ SCH (20:02)
[2019-06-30] MEDS: MONTELUKAST 10 MG TAB PO SCH (20:02)
[2019-06-30] MEDS: VITAMIN D 1,000 INTERNATIONAL UNITS TABLET PO SCH (20:03)
[2019-07-01] VITALS (35 sets, daily range): BP systolic 78–145; BP diastolic 50–69
[2019-07-01] MEDS ORDERED: hydrOXYzine 25 MG TAB PO ONE (00:15)
[2019-07-01] MEDS: SODIUM CHLORIDE HYPERTONIC 3% 15ML NEB SOL INH SCH ×2 (01:05→04:00)
[2019-07-01] MEDS: LEVALBUTEROL 1.25 MG/0.5 ML CONCENTRATE NEB NEB SCH ×4 (01:06→20:00)
[2019-07-01] MEDS: NS 1,000 ML IV SCH ×4 (03:29→19:39)
[2019-07-01 05:13] LABS: BASO # 0.1 10^3/uL (0.0-0.2); BASO % 0.3 % (0.0-1.0); HEMATOCRIT 43.7 % (42.0-52.0); LYMPH # 2.5 10^3/uL (1.5-5.0); LYMPH % 12.2 % (24.0-44.0); MEAN CORPUSCULAR HEMOGLOBIN 31.9 pg (27.0-33.0); MEAN CORPUSCULAR HGB CONC 31.4 g/dl (32.0-36.5); MEAN CORPUSCULAR VOLUME 101.9 fl (80.0-96.0); MONO # 1.4 10^3/uL (0.0-0.8); MONO % 6.8 % (0.0-5.0); NEUTROPHILS # 16.4 10^3/uL (1.5-8.5); NEUTROPHILS % 79.9 % (36.0-66.0); PLATELET COUNT, AUTOMATED 192 10^3/uL (150-450); RED BLOOD COUNT 4.29 10^6/uL (4.30-6.10); WHITE BLOOD COUNT 20.5 10^3/uL (4.0-10.0)
[2019-07-01 05:24] LABS: HEMOGLOBIN 13.7 g/dl (13.5-17.5)
[2019-07-01] MEDS: SLF 3 ML SYR IV SCH ×3 (05:35→22:20)
[2019-07-01] MEDS: BENZONATATE 100 MG CAP PO SCH ×3 (05:35→20:23)
[2019-07-01 05:38] LABS: BLOOD UREA NITROGEN 36 MG/DL (7-18); CARBON DIOXIDE LEVEL 22 MEQ/L (21-32); CHLORIDE LEVEL 114 MEQ/L (98-107); CREATININE FOR GFR 1.22 MG/DL (0.70-1.30); GLOMERULAR FILTRATION RATE > 60.0 (>42); GLUCOSE, FASTING 106 MG/DL (70-100); POTASSIUM SERUM 4.2 MEQ/L (3.5-5.1); SODIUM LEVEL 144 MEQ/L (136-145)
[2019-07-01] MEDS: PIPERACILLIN/TAZOBACTAM SOD 4.5 GM in D5W MINI-BAG PLUS 50 ML IV SCH ×5 (05:44→19:09)
--- NOTE | 2019-07-01 07:50 | ECGEPIP ---
[facility] Test Date: 2019-06-30 Pat Name: PEDRO ABBASI Department: Room: D0788-19 Gender: Male [employer] Project Manager: CHERYLE : 1945 Requested By: NEO Connell Order Number: [id number] Reading MD: Michael Hua Measurements Intervals [employer] Rate: 161 P: VT: 0 QRS: 57 QRSD: 95 T: 20 QT: 274 QTc: 449 Interpretive Statements ATRIAL FIBRILLATION WITH RAPID VENTRICULAR RESPONSE ST-T wave abnormalities possible rate related ischemia Baseline artifact Comparison tracing not on file Electronically Signed on 07-01-2019 7:50:18 EST by Michael Hua
--- NOTE | 2019-07-01 08:00 | REP ---
Clinical: Pneumothorax. Follow-up. Technique: PA and lateral. Comparison: 06/30/2019. Findings: Left-sided chest tube in stable position. Left IJ line in stable position. No obvious residual left pneumothorax is appreciated. Diffuse bilateral chronic and superimposed acute pleuroparenchymal changes remain essentially stable. Impression: No obvious residual pneumothorax identified. Stable pleuroparenchymal changes. Electronically Signed by Zachary Davison MD 07/01/2019 07:52 A
[2019-07-01] MEDS: SYMBICORT 160/4.5MCG INHALER 6GM INH SCH ×2 (08:27→21:14)
[2019-07-01] MEDS ORDERED: ALPRAZolam 0.25 MG TAB PO PRN (09:00)
[2019-07-01] MEDS: MOM 30ML SUSPENSION UDC PO SCH (09:00)
[2019-07-01] MEDS: DOCUSATE SODIUM 100 MG CAP PO SCH ×2 (09:00→20:23)
[2019-07-01] MEDS: PANTOPRAZOLE 40MG TAB (PROTONIX) PO SCH (09:29)
[2019-07-01] MEDS: HEPARIN SOD (PORCINE) 5000 UNITS/ML VIAL SQ SCH (09:30)
[2019-07-01] MEDS: DIGOXIN INJ 0.5 MG/2 ML AMP (J1160) IV SCH ×3 (09:31→20:01)
[2019-07-01] MEDS ORDERED: HEPARIN DRIP 25,000 UNITS in IV 1 EA IV SCH (10:32)
[2019-07-01] MEDS ORDERED: HEPARIN SOD (PORCINE) 5000 UNITS/ML VIAL IV PRN (11:15)
[2019-07-01] MEDS ORDERED: METOPROLOL 5 MG/5 ML VIAL IV STA (13:33)
--- NOTE | 2019-07-01 13:40 | ECHO ---
DATE OF PROCEDURE: 06/30/2019 DATE OF : 1945 AGE: 73 HEIGHT: 60 inches. WEIGHT: 130 pounds. BODY SURFACE AREA: 1.7 meters squared. LOCATION: Inpatient ICU, room 3201. REFERRING PHYSICIAN: Dr. Viviane Emery INDICATION: Dyspnea. MEASUREMENTS 2-D MEASUREMENTS: RV - 4.2 cm LV - 3.9 cm Septum 1.0 cm Posterior wall 1.0 cm Aortic root 3.8 cm LA - 2.8 cm LVEF 45 - 50% DOPPLER MEASUREMENTS: AV - 1.30 m/s LVOT - 0.5 m/s Mean AV systolic gradient 5 mmHg LVOT diameter 2.4 cm MV-E 51, A 69, E/E ratio 0.7 Early mitral deceleration time 151 ms PV - 0.50 m/s Pulmonary artery acceleration time 99 ms PASP - 37 mmHg RVSP 40/45 mmHg IVC - 1.8 cm COMMENTS: Underlying sinus rhythm alternating with multifocal atrial tachycardia. No intraventricular conduction disturbance. Technically very difficult study in light of the patient's body habitus but some diagnostically useful information was still obtained. M-mode and two-dimensional echocardiography was performed with pulsed, continuous wave, and color flow Doppler study. Tissue Doppler examination could not be performed. Normal left ventricular size and wall thickness with obvious septal wall motion abnormality suspected to be due to right ventricular pressure overload. At least mild impairment of global left ventricular systolic function related to this wall motion abnormality. Normal left atrial size with Doppler evidence suggesting a degree of LV diastolic dysfunction, but we could not estimate his mean left atrial pressure. It is unlikely this is high chronically with a normal sized left atrium. At least mildly dilated right ventricle and moderately dilated right atrium with Doppler evidence of at least moderately severe pulmonary hypertension. IVC size upper limits of normal with reduced respiratory collapse in keeping with an elevated central venous pressure. Moderately severe thickening of three equal size aortic cusps with at least mild aortic stenosis. Has reduced stroke volume and flow velocities with only a 5 mm mean gradient across the aortic valve but his dimensionless index measured 0.38. Mild thickening of the mitral annulus with adequate leaflet excursion and no posterior systolic buckling. No significant mitral insufficiency. Slightly dilated aortic root but normal ascending aorta. No pericardial effusion.
--- NOTE | 2019-07-01 15:52 | IPN ---
DATE: 07/01/2019 Mr. Culp looks weaker today and sicker today. His respiratory rate is still in the upper 20s. His vital signs show a maximum temperature (t-max) now of 99.3 with a heart rate that ranges between 117 and 142 and predominantly in a sinus rhythm; however, has gone back into atrial fibrillation. Blood pressure is 87/50 to 109/60 with a respiratory rate of 26 to 28 with the use of accessory muscles who is 97% saturated on 4 liters nasal cannula. PHYSICAL EXAMINATION: LUNGS: His lungs show rales and rhonchi, very coarse in the left side and a bit finer on the right side. Percussion note is full to the diaphragm. I do hear the rales on both sides, particularly during mid to late inspiration. CARDIAC EXAM: Without murmurs, clicks, gallops or rubs. I cannot feel his point of maximum impulse (PMI). S1, S2 are normal. ABDOMEN: Soft, nontender. Bowel sounds positive. There is no hepatomegaly. No costovertebral angle tenderness. EXTREMITIES: Show 1+ pretibial edema. No calf tenderness. Both upper extremities are swollen to about 1+, particularly in the forearms. SKIN: Warm, dry and perfused without cyanosis or mottling, including that of the nail beds and knees. NECK: Supple. There is no jugular venous distention. No subcutaneous emphysema. Trachea is midline. MOUTH: Shows his mucous membranes to be pink and moist. Lips and commissures without lesions. There is no thrush. EYES: Show his pupils to be equal and reactive. Extraocular motion intact. Sclerae anicteric. NEUROLOGIC: Shows II through XII intact with gross motor and gross sensation intact. Gait is not tested. PSYCHIATRIC: Shows him to be awake and alert, appropriate mood and affect. Anxious secondary to shortness of breath. His intake and output the past 24 hours has been recorded as 4866 in and 809 out for a positivity of 4000 mL. He has put out 204 mL from the chest tube and only 405 mL in urine. His weight today is 62.3 kg compared to 58 kg yesterday. There is no air leak from the chest tube. His white count is up to 28.5 with a hemoglobin and hematocrit of 13.7 and 43.7, down from 16.2 and 52.0 secondary to hemodilution. Platelet count is 192 and stable. Differential shows 79% neutrophils, 12% lymphocytes, 6% monocytes. There are no immature forms and no toxic granulations. His electrolytes are essentially normal today with a BUN and creatinine of 36 and 1.22, improved from 38 and 1.35 yesterday. Calcium is 7.0 with a corresponding albumin on 06/30/2019 of 2.0. His PTT is 40.4 seconds. His chest x-ray today shows his lungs fully expanded to the chest wall. He has multiple fluffy infiltrates throughout the lungs out the periphery. The medial right lower lobe infiltrate looks to be improving. The lateral chest x-ray shows a right lower lobe posterior infiltrate and/or consolidation. There is no pleural effusion. IMPRESSION: 1. Spontaneous pneumothorax, probably secondary to emphysematous disease. 2. Chronic obstructive pulmonary disease (COPD). 3. 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 5. Remote history of prostate cancer. 6. Bilateral lower lobe infiltrates/aspiration pneumonia. 7. Hypotension, continuing. 8. Lactic acidemia, status unknown. PLAN/DISCUSSION: As far as his chest tube is concerned, I will take it off suction. As noted yesterday, that is the least of his problems. He has a severe bilateral aspiration pneumonia. His antibiotics consist of Zosyn. Blood culture is negative. The sputum culture is still pending with the gram-stain showing a few gram-positive cocci in pairs, along with gram-positive rods and yeast-like organism. We are awaiting cultures. He is now on supportive care. He is still on Jimy-Synephrine. I am loathe to recommend placing a catheter as he has had a urethral procedure and in fact a radical prostatectomy and uses some type of pump lodged in his left testicle in order to urinate.
--- NOTE | 2019-07-01 17:50 | IPNPDOC ---
Date Seen The patient was seen on 07/01/19. Progress Note SUBJECTIVE: 73-year-old male with past medical history of acute myeloid leukemia status post hematopoietic stem cell transplant, history of ribsd-mxyioo-yqfw disease, was admitted for spontaneous left sided tension pneumothorax. He underwent chest tube placement by thoracic surgery, later on his stay he had an episode of vomiting with subsequent aspiration of gastric contents. He was admitted to the ICU with septic shock secondary to aspiration pneumonia/pneumonitis. He had a triple lumen catheter inserted, started on vasopressors, antibiotics and IV fluids. He has improved with the last 24 hours, requiring minimal doses of phenylephrine. He has also developed A. fib with RVR, treated with digoxin and heparin drip. He is currently comfortable, reports mild dyspnea, requiring supplemental oxygen, no additional complaints. He denies any chest pain, nausea, vomiting, abdominal pain or diarrhea. 10 point review of system is negative except for above PHYSICAL EXAMINATION: VITAL SIGNS: Please see below. GENERAL: No distress, frail HEENT: Normocephalic, atraumatic, moist mucous membranes NECK: Supple CARDIOVASCULAR EXAMINATION: Irregularly irregular RESPIRATORY EXAMINATION: Bilateral rhonchi appreciated, no wheezing ABDOMINAL EXAMINATION: Soft, nontender, nondistended, positive bowel sounds EXTREMITIES: Range of motion intact SKIN: No rash NEUROLOGICAL EXAMINATION: Alert and oriented 3, no focal deficits PSYCHIATRIC EXAMINATION: Calm and cooperative LABORATORY DATA, IMAGING STUDIES, MICROBIOLOGY: Please see below. DVT prophylaxis ordered?: No ASSESSMENT AND PLAN: 73-year-old male with history of acute myeloleukemia status post hematopoietic stem cell transplant, history of urkiw-lkyfcc-ggqw disease, admitted for tension pneumothorax status post chest tube placement, now admitted to ICU with septic shock secondary to aspiration pneumonia. PROBLEMS: 1. Septic shock secondary to aspiration pneumonia/pneumonitis: Continue vasopressors as needed to maintain map greater than 65, Zosyn, continue IV fluids, swallow eval appreciated, supplemental oxygen to maintain O2 sats greater than 90%. 2. Spontaneous tension pneumothorax: Status post chest tube on the left side, repeat x-ray without recurrence, Pleur-evac management as per thoracic surgery. 3. Atrial fibrillation: Dig loaded with 250 g every 6 hours 3 doses, received 1 dose of metoprolol IV 5 mg. DVT prophylaxis: On heparin drip. GI prophylaxis: PPI VS, I&O, 24H, Fishbone Vital Signs/I&O Vital Signs Date Time Temp Pulse Resp B/P (MAP) Pulse Ox O2 Delivery O2 Flow Rate FiO2 07/01/19 14:30 128 07/01/19 14:18 26 109/60 (76) 94 High Flow Cannula 4.0 07/01/19 12:01 99.1 I&O- Last 24 Hours up to 6 AM 07/01/19 06:00 Intake Total 6016.6 ml Output Total 875 ml Balance 5141.6 ml Laboratory Data 24H LABS Laboratory Tests 2 06/30/19 18:54: Bedside Glucose (Misc Panel) 111H 07/01/19 04:54: Immature Granulocyte % (Auto) 0.8, Neutrophils (%) (Auto) 79.9H, Lymphocytes (%) (Auto) 12.2L, Monocytes (%) (Auto) 6.8H, Eosinophils (%) (Auto) 0.0, Basophils (%) (Auto) 0.3, Neutrophils # (Auto) 16.4H, Lymphocytes # (Auto) 2.5, Monocytes # (Auto) 1.4H, Eosinophils # (Auto) 0.0, Basophils # (Auto) 0.1, Nucleated Red Blood Cells % (auto) 0.0, Anion Gap 8, Glomerular Filtration Rate > 60.0, Calcium Level 7.0L 07/01/19 10:45: Activated Partial Thromboplast Time 40.4H CBC/BMP Laboratory Tests 07/01/19 04:54 Microbiology Microbiology 06/30/19 Gram Stain - Final, Resulted 06/30/19 Sputum Culture, Resulted Pending 06/30/19 Blood Culture - Preliminary, Resulted No growth after 24 hours . All specim... NEO LOZADA MD Jul 01, 2019 17:50
[2019-07-01] MEDS: PHENYLEPHRINE HCL INJ 50 MG in D5W 495 ML IV SCH (20:00)
[2019-07-01] MEDS: VITAMIN D 1,000 INTERNATIONAL UNITS TABLET PO SCH (20:01)
[2019-07-01] MEDS: MONTELUKAST 10 MG TAB PO SCH (20:02)
[2019-07-01] MEDS: TIOTROPIUM INHALER/CAPSULE (SPIRIVA) INH SCH (21:14)
[2019-07-02] VITALS (34 sets, daily range): BP systolic 82–148; BP diastolic 52–96; O2SAT 94
[2019-07-02] MEDS: PIPERACILLIN/TAZOBACTAM SOD 4.5 GM in D5W MINI-BAG PLUS 50 ML IV SCH ×4 (00:05→18:25)
[2019-07-02 00:50] LABS: MAGNESIUM LEVEL 1.7 MG/DL (1.8-2.4); POTASSIUM SERUM 4.2 MEQ/L (3.5-5.1)
[2019-07-02] MEDS ORDERED: MAG SULF 1GM/100ML (MAG RUN) 1 GM in IV 1 EA IV ONE (01:00)
[2019-07-02] MEDS ORDERED: METOPROLOL TART 25 MG TABLET PO ONE (01:00)
[2019-07-02] MEDS ORDERED: METOPROLOL 5 MG/5 ML VIAL IV ONE ×2 (01:00)
[2019-07-02] MEDS ORDERED: hydrOXYzine 50 MG TAB PO ONE (01:00)
[2019-07-02] MEDS: LEVALBUTEROL 1.25 MG/0.5 ML CONCENTRATE NEB NEB SCH ×4 (01:24→20:00)
[2019-07-02] MEDS: NS 1,000 ML IV SCH ×2 (01:27→06:32)
[2019-07-02 03:03] LABS: BASO # 0.1 10^3/uL (0.0-0.2); BASO % 0.4 % (0.0-1.0); EOS % 0.1 % (0.0-3.0); HEMATOCRIT 41.9 % (42.0-52.0); LYMPH # 1.5 10^3/uL (1.5-5.0); LYMPH % 7.4 % (24.0-44.0); MEAN CORPUSCULAR HEMOGLOBIN 31.3 pg (27.0-33.0); MEAN CORPUSCULAR VOLUME 100.7 fl (80.0-96.0); MONO # 0.7 10^3/uL (0.0-0.8); MONO % 3.6 % (0.0-5.0); NEUTROPHILS # 16.8 10^3/uL (1.5-8.5); NEUTROPHILS % 85.3 % (36.0-66.0); PLATELET COUNT, AUTOMATED 175 10^3/uL (150-450); RED BLOOD COUNT 4.16 10^6/uL (4.30-6.10); WHITE BLOOD COUNT 19.7 10^3/uL (4.0-10.0)
[2019-07-02] MEDS ORDERED: ACETAMINOPHEN 650 MG SUPP PR PRN ×2 (03:30→09:15)
--- NOTE | 2019-07-02 04:14 | REPVR ---
PROCEDURE INFORMATION: Exam: XR Chest, 1 View Exam date and time: 07/02/2019 3:24 AM Age: 73 years old Clinical history: Other: Asp; Additional info: Aspiration? TECHNIQUE: Imaging protocol: XR of the chest Views: 1 view. COMPARISON: CR Chest, 2 view PA, Lat 07/01/2019 7:45 AM FINDINGS: Tubes, catheters and devices: There is again a left IJ catheter with the tip in the SVC. A left-sided chest tube is again seen. Lungs: There is increased interstitial thickening in both lungs. There is worsening parenchymal opacity, especially in the right mid and lower lung zone . Pleural space: There is blunting of the right costophrenic angle, likely due to a small right pleural effusion. No pneumothorax is seen. Heart/Mediastinum: The heart is normal in size. Bones/joints: Unremarkable. IMPRESSION: Worsening airspace disease, especially in the right mid and lower lung zones as well as an increase in interstitial thickening diffusely. The relatively rapid development of the opacity in the right mid and lower lung zone raises the possibility of aspiration. Worsening pneumonia and interstitial edema may both be present. Electronically signed by: Alyse Cuadra On 07/02/2019 04:14:46 AM
[2019-07-02 04:33] LABS: BLOOD UREA NITROGEN 23 MG/DL (7-18); CALCIUM LEVEL 6.4 MG/DL (8.8-10.2); CARBON DIOXIDE LEVEL 21 MEQ/L (21-32); CHLORIDE LEVEL 120 MEQ/L (98-107); CREATININE FOR GFR 1.04 MG/DL (0.70-1.30); DIGOXIN LEVEL 1.7 NG/ML (0.5-2.0); GLOMERULAR FILTRATION RATE > 60.0 (>42); GLUCOSE, FASTING 117 MG/DL (70-100); MAGNESIUM LEVEL 2.1 MG/DL (1.8-2.4); POTASSIUM SERUM 4.2 MEQ/L (3.5-5.1); SODIUM LEVEL 148 MEQ/L (136-145)
[2019-07-02 05:12] LABS: ABG BASE EXCESS -6.2 (-2.0-2.0); ABG HCO3 17.9 MEQ/L (22.0-26.0); ABG O2 SATURATION 96.9 % (95.0-99.0); ABG PARTIAL PRESSURE CO2 31.5 mmHg (35.0-45.0); ABG PARTIAL PRESSURE O2 81.6 mmHg (75.0-100.0); ABG STANDARD HCO3 19.4 MEQ/L (22.0-26.0); ABG TOTAL CO2 18.9 MEQ/L (23.0-31.0); ABG pH (ARTERIAL) 7.372 UNITS (7.350-7.450)
[2019-07-02] MEDS: BENZONATATE 100 MG CAP PO SCH ×3 (06:00→22:00)
[2019-07-02] MEDS: SLF 3 ML SYR IV SCH ×3 (06:35→22:00)
[2019-07-02] MEDS: SYMBICORT 160/4.5MCG INHALER 6GM INH SCH ×2 (07:44→21:35)
[2019-07-02] MEDS ORDERED: FUROSEMIDE 40 MG/4 ML VIAL (J1940) IV ONE (08:00)
--- NOTE | 2019-07-02 08:22 | REP ---
Two-view chest: 07/12/2019. Indication: Dyspnea. Comparison: Earlier same day. Findings: There has been improvement of the right-sided pleural effusion. Study is otherwise unchanged with stable appearing position of the left chest tube and subclavian line. Prominent interstitial markings and patchy airspace opacities , particularly within the right middle lobe are unchanged. Impression: Mildly diminished right-sided pleural effusion. Otherwise unchanged exam. Electronically Signed by Manny Redman DO 07/02/2019 08:14 A
[2019-07-02] MEDS: MOM 30ML SUSPENSION UDC PO SCH (09:00)
[2019-07-02] MEDS: DOCUSATE SODIUM 100 MG CAP PO SCH ×2 (09:00→20:38)
[2019-07-02] MEDS: PANTOPRAZOLE 40MG INJ (PROTONIX) (C9113) IV SCH (09:29)
[2019-07-02] MEDS ORDERED: VANCOMYCIN HCL 1,000 MG, VIAL MATE ADAPTER 1 EACH in D5W 250 ML IV SCH (11:30)
[2019-07-02] MEDS: HYDROCORTISONE 100 MG/2 ML VIAL (J1720 PER 1) IV SCH ×2 (12:25→18:25)
--- NOTE | 2019-07-02 12:40 | PHACANCOPD ---
PHARMACY VANCOMYCIN DOSING Pt Demographics Demographics Patient Age:73 , Weight:62.300 , Gender: male Adjusted Body Weight Date: 07/02/19, Adjusted Body Weight: [62.3] Kg Events Past 24 Hours Events Past 24 Hours: NO: Dialysis, Diuretic Therapy, Change in CrCl, Fever, Elevation in WBC, Pending Diagnostics, Pending Procedures, Other Vancomycin Vancomycin indication: RESPIRATORY INFECTION Vancomycin Target Ranges: 15-20 mcg/ml Vancomycin Load Y/N: Yes Load Dose Date Time Vancomycin Load Dose: 1250MG Date: 07/02/19 Time: 1300 Vancomycin Dose Date: 07/02/19. Current Vancomycin Dose: [1G Q18H] Intermittent Dosing?: No Labs Labs Item Value Date Time White Blood Count 11.8 10^3/uL H 06/16/19 1510 White Blood Count 11.3 10^3/uL H 06/29/19 1345 White Blood Count 14.9 10^3/uL H 06/30/19 0503 White Blood Count 20.5 10^3/uL H 07/01/19 0454 White Blood Count 19.7 10^3/uL H 07/02/19 0252 Creatinine 1.04 MG/DL 07/02/19 0252 Glomerular Filtration Rate > 60.0 07/02/19 0252 Other Labs 07/02 Temps: 99.3, 101.2, 98.9, and 102.9 06/30 Procalcitonin: 6.11 06/30 MRSA PCR: negative Micro Microbiology 06/30/19 Gram Stain - Final, Complete 06/30/19 Sputum Culture - Final, Complete Yeast Like Organism 06/30/19 Blood Culture - Preliminary, Resulted No Growth after 48 hours. All Specime... Creatinine Clearance Date:07/02/19. Creatinine Clearance: [54.6]. Assessment and Plan Maintaining Current Dose?: Yes Reason for dose change: No Dose Change Pharmacist Note Pharmacist Note Date: 07/02/19. Pharmacist note: This is the first time we are following this patient on Vancomycin therapy at our facility. The patient's overall clinical status seems to be declining based on the following data. SCr= 1.04, CrCl= 54.6, WBC were trending upwards over the last few days, have decreased a small amount today. Over the last 24 hours, patient has been febrile with a max temp of 102.9. 06/30 Procalcitonin=6.11. MRSA PCR on 06/30 was negative. Vanco loading dose= 1250mg followed by a maintenance dosing of 1G Q18H. Based on these findings and the sputum culture, signs don't seem to point to a MRSA pneumonia, but due to the patient's declining state we will add on and continue to monitor and will follow up with the provider tomorrow to see if Vancomycin therapy is necessary for the patient. MARIAN CADENA, PHARMACY Jul 02, 2019 12:40
[2019-07-02] MEDS ORDERED: VANCOMYCIN HCL 750 MG, VIAL MATE ADAPTER 1 EACH in D5W 250 ML IV ONE (13:00)
[2019-07-02] MEDS ORDERED: VERAPAMIL 40 MG TAB PO SCH (14:00)
[2019-07-02] MEDS ORDERED: VANCOMYCIN HCL 500 MG in D5W MINI-BAG PLUS 100 ML IV ONE (14:00)
--- NOTE | 2019-07-02 17:14 | IPNPDOC ---
Date Seen The patient was seen on 07/02/19. 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 He underwent chest tube placement by thoracic surgery, later on his stay he had an episode of vomiting with subsequent aspiration of gastric contents. He was admitted to the ICU with septic shock secondary to aspiration pneumonia/pneumonitis. He had a triple lumen catheter inserted, started on vasopressors, antibiotics and IV fluids. He has improved with the last 24 hours, requiring minimal doses of phenylephrine. He has also developed A. fib with RVR, treated with digoxin and heparin drip. He is currently comfortable, reports mild dyspnea, requiring supplemental oxygen, no additional complaints. He denies any chest pain, nausea, vomiting, abdominal pain or diarrhea. 07/02/2019 Patient aspirated again overnight, requiring increased supplement oxygen, dyspn ea increased, anxious, no other complaints. Case discussed with oncologist in [place] regarding patient's history of hvbgr-apvqmy-fcjv disease, recommend stress dose steroids, no other intervention. 10 point review of system is negative except for above PHYSICAL EXAMINATION: VITAL SIGNS: Please see below. GENERAL: No distress, frail HEENT: Normocephalic, atraumatic, moist mucous membranes NECK: Supple CARDIOVASCULAR EXAMINATION: Irregularly irregular, tachycardic RESPIRATORY EXAMINATION: Bilateral rhonchi appreciated, no wheezing ABDOMINAL EXAMINATION: Soft, nontender, nondistended, positive bowel sounds EXTREMITIES: Range of motion intact SKIN: No rash NEUROLOGICAL EXAMINATION: Alert and oriented 3, no focal deficits PSYCHIATRIC EXAMINATION: Calm and cooperative LABORATORY DATA, IMAGING STUDIES, MICROBIOLOGY: Please see below. DVT prophylaxis ordered?: No ASSESSMENT AND PLAN: 73-year-old male with history of acute myeloleukemia status post hematopoietic stem cell transplant, history of kzksv-hedxfz-zord disease, admitted for tension pneumothorax status post chest tube placement, now admitted to ICU with septic shock secondary to aspiration pneumonia. PROBLEMS: 1. Septic shock secondary to aspiration pneumonia/pneumonitis: Continue vasopressors as needed to maintain map greater than 65, Zosyn, vancomycin, x-ray revealed worsening of the trait from IV fluids and repeat aspiration, Lasix 40 mg IV 1, strict nothing by mouth, supplemental oxygen to maintain O2 sats great er than 95%. 2. Spontaneous tension pneumothorax: Status post chest tube on the left side, repeat x-ray without recurrence, Pleur-evac management as per thoracic surgery. 3. Multifocal atrial tachycardia: Remains significantly tachycardic, case discussed with Dr. Brady who will see the patient, recommended verapamil as first-line agent but patient is strict nothing by mouth, will try amiodarone as second line agent to improve tachycardia. DVT prophylaxis: Heparin subcutaneous GI prophylaxis: PPI VS, I&O, 24H, Fishbone Vital Signs/I&O Vital Signs Date Time Temp Pulse Resp B/P (MAP) Pulse Ox O2 Delivery O2 Flow Rate FiO2 07/02/19 15:00 149 102/68 (79) 94 High Flow Cannula 8.0 07/02/19 12:00 101.7 22 I&O- Last 24 Hours up to 6 AM 07/02/19 06:00 Intake Total 5389.5 ml Output Total 1730 ml Balance 3659.5 ml Laboratory Data 24H LABS Laboratory Tests 2 07/01/19 19:14: Activated Partial Thromboplast Time 206.0*H 07/01/19 23:39: Magnesium Level 1.7L 07/02/19 02:52: Activated Partial Thromboplast Time 190.6*H, Magnesium Level 2.1, Immature Granulocyte % (Auto) 3.2H, Neutrophils (%) (Auto) 85.3H, Lymphocytes (%) (Auto) 7.4L, Monocytes (%) (Auto) 3.6, Eosinophils (%) (Auto) 0.1, Basophils (%) (Auto) 0.4, Neutrophils # (Auto) 16.8H, Lymphocytes # (Auto) 1.5, Monocytes # (Auto) 0 .7, Eosinophils # (Auto) 0.0, Basophils # (Auto) 0.1, Nucleated Red Blood Cells % (auto) 0.2H, Anion Gap 7L, Glomerular Filtration Rate > 60.0, Calcium Level 6.4L, Digoxin Level 1.7 07/02/19 05:05: Blood Gas Bicarbonate Standard 19.4L, Arterial Blood pH 7.372, Arterial Blood Partial Pressure CO2 31.5L, Arterial Blood Partial Pressure O2 81.6, Arterial Blood Total CO2 18.9L, Arterial Blood HCO3 17.9L, Arterial Blood Base Excess - 6.2L, Arterial Blood Oxygen Saturation 96.9 07/02/19 10:52: Activated Partial Thromboplast Time 126.6*H CBC/BMP Laboratory Tests 07/01/19 23:39 07/02/19 02:52 Microbiology Microbiology 06/30/19 Gram Stain - Final, Complete 06/30/19 Sputum Culture - Final, Complete Yeast Like Organism 06/30/19 Blood Culture - Preliminary, Resulted No Growth after 48 hours. All Specime... NEO LOZADA MD Jul 02, 2019 17:13
[2019-07-02] MEDS ORDERED: LORazepam 2 MG/ML VIAL (J2060) IV PRN (17:15)
[2019-07-02] MEDS ORDERED: AMIODARONE HCL 150 MG in IV 1 EA IV ONE (17:15)
--- NOTE | 2019-07-02 17:33 | IPN ---
DATE: 07/02/2019 As poor as Mr. Culp looked yesterday, he looks worse today. He still has tachypnea with a tachycardia. His tachypnea is accompanied by use of accessory muscles. His maximum temperature (T max) is 102.9 with a heart rate that is still in atrial fibrillation running around 150, between 146 and 155. He is 93% saturated now on 12 liters nasal cannula, although blood pressure is ranging between 103/60 to 145/69. He is not responding to a Cardizem drip, and he is being tried on verapamil. His intake and output over the past 24 hours has been recorded as 5126 in and 1465 out for a positivity of 3661 mL. His chest tube has put out 275 mL, and there is no air leak. Weight is pending today. He was noted to aspirate last night. On physical examination, he has coarse rhonchi and rales, particularly in the right lower hemithorax but essentially throughout all of his lung mejia. These occur on expiration and inspiration. Percussion note is dull at the base of the right side. Cardiac exam shows tachycardia. I do not appreciate murmurs, clicks, gallops or rubs. I cannot feel his point of maximum impulse (PMI) and S1, S1 are normal. Abdomen is soft, nontender but slightly distended. Bowel sounds are hypoactive. There is no hepatomegaly. No costovertebral angle tenderness. Extremities still show 1+ pretibial edema. No calf tenderness and both upper extremities are still swollen but equally. Skin is warm, dry and perfused without cyanosis or mottling including that of the nail beds and the knees. Neck is supple. There is no jugular venous distention, no subcutaneous emphysema. Trachea is midline. Mouth shows his mucous membranes to be pink and moist. Lips and commissures without lesions. There is no thrush. Eyes show his pupils to be equal and reactive. Extraocular motions intact. Sclerae anicteric. Neurologic shows II-XII intact along with gross motor and gross sensation intact. Gait is not tested. Psychiatric shows him to be awake and alert but somewhat somnolent and depressed. His white count is now 19.7, essentially unchanged from 20.5 yesterday. Hemoglobin and hematocrit are 13.0 and 41.9 with a platelet count of 175 and stable. Differential shows 85% neutrophils, 7% lymphocytes, 3% monocytes. There are no immature forms. No toxic granulations. Electrolytes show a sodium of 148 with a BUN and creatinine of 23 and 1.04, a calcium of 6.4 with a magnesium of 2.1 with a corresponding albumin on 06/30/2019 of 2.0. His PTT is 126.6 today. He is on a heparin drip. Blood gas today showed a pH of 7.32, pCO2 of 31, and a pO2 of 81 with a base excess of -6.2. His total CO2 is at the very lower limits of normal at 21. Digoxin level was 1.7. His chest x-ray is markedly worse today. There are now increased fluffy infiltrates and a lot more opacity in the right lower lobe. His right hemidiaphragm is now partially obscured. Chest tube is in satisfactory position. There is no pneumothorax. IMPRESSION: 1. Spontaneous pneumothorax, probably secondary to emphysematous disease. 2. Chronic obstructive pulmonary disease (COPD). 3. Acute status post stem cell transplant. 4. History of nktbn-turofx-izbs disease. 5. History of prostate cancer. 6. Bilateral lower lobe infiltrates, particularly now in the right lower lobe much worse. 7. Aspiration pneumonia. 8. Sepsis. 9. Hypotension, resolving. 10. Lactic acidemia, status unknown. 11. Continued nausea and vomiting. PLAN AND DISCUSSION: As far as his chest tube is concerned, it will stay in until the output decreases below 200. There is no air leak. It turns out that his pneumothorax is the least of his problems, and I do not think it is related to the other problems that he has now. There is some talk of zdmdj-vxgmni-aqdt disease once again, although I do not have the expertise to comment on that. He does look to be chronically aspirating and continues on Zosyn and now vancomycin. There also has been some talk of transferring him to [facility] and those discussions are under way now. In order to stop the aspiration, I think that we are going to have to stop feeding him and consider a percutaneous endoscopic gastrostomy (PEG) tube. I know that will be quite difficult for the patient. We are also awaiting a speech therapy consultation. I am going to transfer Mr. Culp formally to the medical service.
[2019-07-02] MEDS: AMIODARONE HCL 360 MG in IV 1 EA IV SCH (17:55)
[2019-07-02] MEDS: VITAMIN D 1,000 INTERNATIONAL UNITS TABLET PO SCH (20:38)
[2019-07-02] MEDS: MONTELUKAST 10 MG TAB PO SCH (20:38)
[2019-07-02] MEDS: TIOTROPIUM INHALER/CAPSULE (SPIRIVA) INH SCH (21:35)
[2019-07-03] VITALS (21 sets, daily range): BP systolic 99–156; BP diastolic 55–80; O2SAT 92–98
[2019-07-03] MEDS: PIPERACILLIN/TAZOBACTAM SOD 4.5 GM in D5W MINI-BAG PLUS 50 ML IV SCH ×2 (00:04→05:51)
[2019-07-03] MEDS: HYDROCORTISONE 100 MG/2 ML VIAL (J1720 PER 1) IV SCH ×5 (00:04→23:37)
[2019-07-03] MEDS: AMIODARONE HCL 360 MG in IV 1 EA IV SCH (00:05)
[2019-07-03] MEDS ORDERED: AMIODARONE HCL 360 MG in IV 1 EA IV SCH (00:15)
[2019-07-03] MEDS: LEVALBUTEROL 1.25 MG/0.5 ML CONCENTRATE NEB NEB SCH ×4 (01:06→20:00)
[2019-07-03] MEDS: BENZONATATE 100 MG CAP PO SCH ×3 (05:51→21:37)
[2019-07-03] MEDS: SLF 3 ML SYR IV SCH ×2 (05:51→13:53)
[2019-07-03 06:11] LABS: BASO % 0.2 % (0.0-1.0); LYMPH % 4.8 % (24.0-44.0); MEAN CORPUSCULAR HEMOGLOBIN 31.8 pg (27.0-33.0); MEAN CORPUSCULAR HGB CONC 32.5 g/dl (32.0-36.5); MEAN CORPUSCULAR VOLUME 97.8 fl (80.0-96.0); MONO # 0.4 10^3/uL (0.0-0.8); MONO % 2.2 % (0.0-5.0); NEUTROPHILS % 90.7 % (36.0-66.0); PLATELET COUNT, AUTOMATED 172 10^3/uL (150-450); RED BLOOD COUNT 4.09 10^6/uL (4.30-6.10); WHITE BLOOD COUNT 19.8 10^3/uL (4.0-10.0)
[2019-07-03 06:42] LABS: CALCIUM LEVEL 6.4 MG/DL (8.8-10.2); CREATININE FOR GFR 1.55 MG/DL (0.70-1.30); GLOMERULAR FILTRATION RATE 46.8 (>42); MAGNESIUM LEVEL 1.8 MG/DL (1.8-2.4); PHOSPHORUS LEVEL 3.2 MG/DL (2.5-4.9); POTASSIUM SERUM 3.5 MEQ/L (3.5-5.1)
[2019-07-03] MEDS ORDERED: VANCOMYCIN HCL 1,000 MG, VIAL MATE ADAPTER 1 EACH in D5W 250 ML IV SCH (07:00)
[2019-07-03] MEDS: SYMBICORT 160/4.5MCG INHALER 6GM INH SCH (07:59)
[2019-07-03] MEDS: TIOTROPIUM INHALER/CAPSULE (SPIRIVA) INH SCH (07:59)
[2019-07-03] MEDS: MOM 30ML SUSPENSION UDC PO SCH (08:03)
[2019-07-03] MEDS: DOCUSATE SODIUM 100 MG CAP PO SCH ×2 (08:03→20:55)
[2019-07-03] MEDS: HEPARIN SOD (PORCINE) 5000 UNITS/ML VIAL SQ SCH ×2 (08:19→21:37)
[2019-07-03] MEDS: PANTOPRAZOLE 40MG INJ (PROTONIX) (C9113) IV SCH (08:19)
--- NOTE | 2019-07-03 08:38 | REP ---
Clinical: Follow up pneumothorax. Technique: PA and lateral. Comparison: 07/02/2019. Findings: Left chest tube in stable position without obvious acute residual pneumothorax. Left IJ line with tip in the SVC/brachiocephalic confluence. Diffuse bilateral pleuroparenchymal changes consistent with acute multifocal infiltrates and underlying chronic interstitial disease are essentially unchanged. Impression: No significant change from prior examination. No obvious residual left pneumothorax. Electronically Signed by Zachary Davison MD 07/03/2019 08:30 A
--- NOTE | 2019-07-03 10:28 | ECGEPIP ---
[facility] Test Date: 2019-07-03 Pat Name: PEDRO ABBASI Department: Room: M6258-95 Gender: Male Sensor Specialist: RITU : 1945 Requested By: Joshua Brady Order Number: [id number] Reading MD: Michael Hua Measurements Intervals [place] Rate: 115 P: NE: 0 QRS: 44 QRSD: 114 T: 97 QT: 281 QTc: 390 Interpretive Statements ATRIAL FIBRILLATION WITH RAPID VENTRICULAR RESPONSE WITH ABERRANT CONDUCTION OR VENTRICULAR PREMATURE COMPLEXES LOW QRS VOLTAGE IN EXTREMITY LEADS MODERATE INTRAVENTRICULAR CONDUCTION DELAY NONSPECIFIC ST & T-WAVE ABNORMALITY rate decreased from tracing done 06-30-19 Electronically Signed on 07-03-2019 10:28:35 EST by Michael Hua
[2019-07-03] MEDS: MEROPENEM INJ 1 GM in IV 1 EA IV SCH ×2 (12:27→21:37)
[2019-07-03] MEDS: AMIODARONE 200 MG TAB (PACERONE) PO SCH ×3 (13:15→23:37)
--- NOTE | 2019-07-03 13:54 | IPN ---
DATE: 07/03/2019 Mr. Culp is sitting in a chair; however, he is still very short of breath. His pain is being well controlled at the chest tube insertion site. His vital signs show a maximum temperature (t-max) now of 101.7, now afebrile at 98.4, with a heart rate that ranges between 102 and 114, looks to be in predominantly sinus rhythm. Respiratory rate of 20 to 22 with the use of accessory muscles at the neck, who is 96 to 98% saturated now on 5 liters nasal cannula, down from 12 liters nasal cannula yesterday. His blood pressure is ranging between 129/66 to 103/56. His intake and output over the past 24 hours has been recorded as 2732 in and 1605 out for a positivity of 1127 mL. He is now positive over the hospital course of approximately 10 liters. He has put out 480 mL from the chest tube compared to 275 yesterday. I think that this reflects his intake and output imbalance. Weight today is 61.7 kg compared to 62.3 kg two days ago. PHYSICAL EXAMINATION: LUNGS: He has diffuse rales and rhonchi on both sides. Percussion note is full to the diaphragm. CARDIAC EXAM: Tachycardia without murmurs, clicks, gallops or rubs. I cannot feel his point of maximum impulse (PMI). S1, S2 are normal. ABDOMEN: Soft, nontender, softly distended. Bowel sounds hypoactive. I cannot feel hepatomegaly in the sitting position. EXTREMITIES: Maybe trace pretibial edema, if that. There is no calf tenderness. No differential swelling of the upper extremities. SKIN: Warm, dry and perfused without cyanosis or mottling, including that of the nail beds and knees. NECK: Supple. There is no jugular venous distention. No subcutaneous emphysema. Trachea is midline. MOUTH: Shows his mucous membranes to be dry but pink. Lips and commissures without lesions. EYES: Show his pupils to be equal and reactive. Extraocular motion intact. Sclerae anicteric. NEUROLOGIC: Shows II through XII intact with gross motor and gross sensation intact. Gait is not tested. PSYCHIATRIC: Shows him to be awake and alert, oriented times three but rather slow to respond and out of breath and not all that conversational. His white count today is up to 19.8, which is essentially unchanged from yesterday with a hemoglobin and hematocrit of 13.0 and 40.0, which is also unchanged from yesterday. Platelet count is 172 and differential shows 90% neutrophils, 4% lymphocytes, 2% monocytes. There are no immature forms and no toxic granulations. His electrolytes still show a mild hypernatremia at 148, potassium is 3.5 with a BUN and creatinine which is now increased to 30 and 1.55, compared to 23 and 1.04 yesterday. Glucose is 141 with a calcium of 6.4 with a corresponding albumin of 2.0, magnesium 1.8 and phosphorous of 3.2. His PTT is 126 seconds His chest x-ray shows the same increased right lower lobe infiltrate along with patchy infiltrates on the left side. It may be more slightly improved than yesterday. Chest tube is in good place, and there is the same posterior opacity and infiltrate on the lateral film. IMPRESSION: 1. Spontaneous pneumothorax, probably secondary to emphysematous disease. 2. Chronic obstructive pulmonary disease (COPD). 3. Acute myeloblastic leukemia (AML), status post stem cell graft. 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 5. History of prostate cancer. 6. Bilateral lower lobe infiltrates, maybe improving. 7. Bilateral aspiration pneumonia. 8. Sepsis. 9. Hypotension, resolved. 10. Lactic acidemia, status unknown but probably resolved. 11. Nausea and vomiting. 12. Acute renal failure. PLAN/DISCUSSION: He is no longer taking oral intake and a nasogastric tube has been placed. Surgical consultation has been requested for placement of a PEG tube. His chest tube output no doubt reflects his input and output imbalance and will eventually resolve itself. He is currently on vancomycin and meropenem, having been changed from Zosyn. Microbiology is only growing out yeast-like organism at this point in time. It is a moderate amount and his blood cultures are negative. As far as his chest tube is concerned, it will stay in until he puts out less than 200 mL per day. That will eventually resolve with input and output equalization. His main problem is consistent with the aspiration pneumonia and that is going to be treated with preventative with a PEG tube. He is in very guarded condition. I will discontinue his chest tube suction.
--- NOTE | 2019-07-03 16:32 | REP ---
SINGLE VIEW CHEST: Single view of the chest is performed centered at the lower chest to evaluate nasogastric tube placement. The sideport of the nasogastric tube is just distal to the gastroesophageal junction. Left chest tube is noted. Scattered patchy infiltrates are seen bilaterally, right greater than left. Left central venous catheter is seen with the tip in the superior vena cava. Electronically Signed by Betito Robles MD 07/03/2019 04:39 P
--- NOTE | 2019-07-03 17:56 | IPNPDOC ---
Date Seen The patient was seen on 07/03/19. 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 He underwent chest tube placement by thoracic surgery, later on his stay he had an episode of vomiting with subsequent aspiration of gastric contents. He was admitted to the ICU with septic shock secondary to aspiration pneumonia/pneumonitis. He had a triple lumen catheter inserted, started on vasopressors, antibiotics and IV fluids. He has improved with the last 24 hours, requiring minimal doses of phenylephrine. He has also developed A. fib with RVR, treated with digoxin and heparin drip. He is currently comfortable, reports mild dyspnea, requiring supplemental oxygen, no additional complaints. He denies any chest pain, nausea, vomiting, abdominal pain or diarrhea. 07/02/2019 Patient aspirated again overnight, requiring increased supplement oxygen, dyspn ea increased, anxious, no other complaints. Case discussed with oncologist in [place] regarding patient's history of pluoo-ifpvdl-rjqr disease, recommend stress dose steroids, no other intervention. 07/03/2019 Heart rate improved after amiodarone bolus, patient reports slight improvement in dyspnea and cough, had a discussion regarding PEG tube placement, patient previously had a PEG tube for one and half years which was removed about 2 years ago. Patient is currently agreeable to PEG tube placement. Patient without additional complaints at this time. 10 point review of system is negative except for above PHYSICAL EXAMINATION: VITAL SIGNS: Please see below. GENERAL: No distress, frail HEENT: Normocephalic, atraumatic, moist mucous membranes NECK: Supple CARDIOVASCULAR EXAMINATION: Irregularly irregular, tachycardic RESPIRATORY EXAMINATION: Bilateral rhonchi appreciated, no wheezing ABDOMINAL EXAMINATION: Soft, nontender, nondistended, positive bowel sounds EXTREMITIES: Range of motion intact SKIN: No rash NEUROLOGICAL EXAMINATION: Alert and oriented 3, no focal deficits PSYCHIATRIC EXAMINATION: Calm and cooperative LABORATORY DATA, IMAGING STUDIES, MICROBIOLOGY: Please see below. DVT prophylaxis ordered?: Yes ASSESSMENT AND PLAN: 73-year-old male with history of acute myeloleukemia status post hematopoietic stem cell transplant, history of bfacd-fhrwxv-bpbv disease, admitted for tension pneumothorax status post chest tube placement, now admitted to ICU with septic shock secondary to aspiration pneumonia. PROBLEMS: 1. Septic shock secondary to aspiration pneumonia/pneumonitis: BP stable without vasopressors, Zosyn switched to Merrem, vancomycin, continue stress dose steroids, strict nothing by mouth, NG tube placed for tube feeds, general surgery consulted for PEG placement, ID following, supplemental oxygen to maintain O2 sats greater than 95%. 2. Spontaneous tension pneumothorax: Status post chest tube on the left side, repeat x-ray without recurrence, Pleur-evac management as per thoracic surgery. 3. Multifocal atrial tachycardia: Rate improved with amiodarone, cardiology following. 4. Acute kidney injury: Likely related to combination of vancomycin and Zosyn, Zosyn, switched to Merrem, will monitor. DVT prophylaxis: Heparin subcutaneous GI prophylaxis: PPI VS, I&O, 24H, Fishbone Vital Signs/I&O Vital Signs Date Time Temp Pulse Resp B/P (MAP) Pulse Ox O2 Delivery O2 Flow Rate FiO2 07/03/19 16:00 5.0 07/03/19 16:00 98.5 129 22 134/67 (89) 95 High Flow Cannula I&O- Last 24 Hours up to 6 AM 07/03/19 06:00 Intake Total 1301.2 ml Output Total 1765 ml Balance -463.8 ml Laboratory Data 24H LABS Laboratory Tests 2 07/03/19 05:47: Immature Granulocyte % (Auto) 2.1, Neutrophils (%) (Auto) 90.7H, Lymphocytes (%) (Auto) 4.8L, Monocytes (%) (Auto) 2.2, Eosinophils (%) (Auto) 0.0, Basophils (%) (Auto) 0.2, Neutrophils # (Auto) 18.0H, Lymphocytes # (Auto) 1.0L, Monocytes # (Auto) 0.4, Eosinophils # (Auto) 0.0, Basophils # (Auto) 0.0, Nucleated Red Blood Cells % (auto) 0.2H, Anion Gap 7L, Glomerular Filtration Rate 46.8, Calcium Level 6.4L, Phosphorus Level 3.2#, Magnesium Level 1.8 CBC/BMP Laboratory Tests 07/03/19 05:47 Microbiology Microbiology 06/30/19 Gram Stain - Final, Complete 06/30/19 Sputum Culture - Final, Complete Yeast Like Organism 06/30/19 Blood Culture - Preliminary, Resulted No Growth after 72 hours. All specime... NEO LOZADA MD Jul 03, 2019 17:55
[2019-07-03] MEDS: ONDANSETRON 4MG/2ML VIAL (J2405) IV PRN (19:13)
--- NOTE | 2019-07-03 19:13 | IPNPDOC ---
Date Seen The patient was seen on 06/30/19. Progress Note RIJ TLC procedure note INDICATION: Septic shock PROCEDURE COMPUTER SYSTEMS INFORMATION DIRECTOR: Neo Lozada CONSENT: Consent was obtained from patient prior to the procedure. Indications, risks, and benefits were explained at length. PROCEDURE SUMMARY: A time out was performed. My hands were washed immediately prior to the procedure. I wore a surgical cap, mask with protective eyewear, full gown and sterile gloves throughout the procedure. The patient was placed in Trendelenburg position. Left chest region was prepped using chlorhexidine scrub and draped in sterile fashion using a full drape and sterile probe cover employed. The Internal Jugular vein was identified using the ultrasound. Anesthesia was achieved over the vein using 1% lidocaine. Using real-time out of plane guidance, the introducer needle was inserted into the Internal Jugular vein under direct ultrasound visualization. Venous blood was withdrawn. The syringe was removed and a guidewire was advanced into the introducer needle. The guidewire was visualized in the Internal Jugular Vein by ultrasound. A small incision was made at the skin surface with a scalpel and the introducer needle was exchanged for a dilator over the guidewire. After appropriate dilation was obtained, the dilator was exchanged over the wire for a 20 cm central venous catheter. The wire was removed and the catheter was sutured in place at 20 cm. A sterile sorbaview shield was placed over the catheter at the insertion site. The patient tolerated the procedure without any hemodynamic compromise. At time of procedure completion, all ports aspirated and flushed properly. Post-procedure chest x-ray confirms adequate placement of central line. Estimated blood loss is <5 cc. VS, [facility]O, [facility] Vital Signs/I&O Vital Signs Date Time Temp Pulse Resp B/P (MAP) Pulse Ox O2 Delivery O2 Flow Rate FiO2 07/03/19 18:00 123 144/67 (92) 93 High Flow Cannula 5.0 07/03/19 16:00 98.5 22 I&O- Last 24 Hours up to 6 AM 07/03/19 06:00 Intake Total 1301.2 ml Output Total 1765 ml Balance -463.8 ml Laboratory Data 24H LABS Laboratory Tests 2 07/03/19 05:47: Immature Granulocyte % (Auto) 2.1, Neutrophils (%) (Auto) 90.7H, Lymphocytes (%) (Auto) 4.8L, Monocytes (%) (Auto) 2.2, Eosinophils (%) (Auto) 0.0, Basophils (%) (Auto) 0.2, Neutrophils # (Auto) 18.0H, Lymphocytes # (Auto) 1.0L, Monocytes # (Auto) 0.4, Eosinophils # (Auto) 0.0, Basophils # (Auto) 0.0, Nucleated Red Blood Cells % (auto) 0.2H, Anion Gap 7L, Glomerular Filtration Rate 46.8, Calcium Level 6.4L, Phosphorus Level 3.2#, Magnesium Level 1.8 CBC/BMP Laboratory Tests 07/03/19 05:47 Microbiology Microbiology 06/30/19 Gram Stain - Final, Complete 06/30/19 Sputum Culture - Final, Complete Yeast Like Organism 06/30/19 Blood Culture - Preliminary, Resulted No Growth after 72 hours. All specime... NEO LOZADA MD Jul 03, 2019 19:13
[2019-07-03] MEDS ORDERED: LIDOCAINE 2% 5ML JELLY UROJET TOP ONE (19:45)
[2019-07-03] MEDS ORDERED: METOCLOPRAMIDE INJ 10MG/2ML VIAL (J2765) IV ONE (20:00)
[2019-07-03] MEDS: FORMOTEROL FUMARATE 20 MCG/2 ML INHALATION SOLUTION (PERFOROMIST) INH SCH (20:10)
[2019-07-03] MEDS: BUDESONIDE 0.5 MG/2 ML INHALATION SUSPENSION INH SCH (20:12)
--- NOTE | 2019-07-03 20:39 | SMCUROLCON ---
Urology Consultation General Date of Consultation 07/03/19 Reason For Consultation This patient is seen for Post Stem Cell Transplant,Assess For Resp To [facility]. History of Present Illness The patient is a [73]-year-old [male] with a past medical history for [prostate cancer with radiation and salvage prostatectomy. 6 month after salvage prostatectomy in 2012 patient had a urinary sphincter place]. I was asked to see the patient secondary to need for Samuels catheter. Medications Current Medications Current Medications Medications (Trade) Dose Ordered Sig/Christine Route PRN Reason Start Time Stop Time Status Last Admin Dose Admin Acetaminophen (Tylenol Suppository) 650 mg Q4HP PRN OR PAIN / FEVER 07/02/19 09:15 07/02/19 09:28 Acetaminophen (Tylenol Suppository) 650 mg Q8HP PRN OR Headache / FEVER 07/02/19 03:30 07/02/19 09:13 DC 07/02/19 03:30 Acetaminophen (Tylenol Tab) 650 mg Q6HP PRN PO T > 101.5 or SHEPHERD 06/29/19 14:15 07/02/19 03:24 DC Acetaminophen/ Hydrocodone Bitart ([place], Anexsia 5/325) 1 tab Q3HP PRN PO MILD PAIN (PS 1-4) 06/29/19 14:15 06/29/19 20:54 Alprazolam (Xanax) 0.25 mg TIDP PRN PO ANXIETY 07/01/19 09:00 07/01/19 20:01 Amiodarone HCl (Pacerone, Cordarone) 200 mg Q6H PO 07/03/19 12:00 07/03/19 17:20 Amiodarone HCl 360 mg/IV Miscellaneous Supplies 200 ml @ 17 mls/hr [id number] IV 07/03/19 00:15 07/03/19 12:29 DC 07/02/19 23:58 Amiodarone HCl 360 mg/IV Miscellaneous Supplies 200 ml @ 33.333 mls/ hr Q6H IV 07/02/19 18:15 07/03/19 00:15 DC 07/02/19 17:55 Artificial Tears (Akwa Tears) 2 drop QID PRN OU DRY EYES 06/29/19 14:15 Benzonatate (Tessalon Perles) 200 mg Q8H PO 06/30/19 06:00 12/3/19 06:24 Bisacodyl (Dulcolax Suppository) 10 mg Q4HP PRN OR CONSTIPATION 06/29/19 14:15 Budesonide (Pulmicort) 0.5 mg RBID INH 07/03/19 20:00 07/03/19 20:12 Budesonide/ Formoterol Fumarate (Symbicort 160/ 4.5mcg) 2 puff RBID INH 06/29/19 20:00 07/03/19 15:03 DC 07/03/19 07:59 Cefazolin Sodium 1 gm/Dextrose 50 ml @ 100 mls/hr Q8H IV 06/29/19 18:00 06/30/19 13:43 DC 06/30/19 10:43 Digoxin (Lanoxin) 0.25 mg Q6H IV 07/01/19 09:00 07/01/19 21:01 DC 07/01/19 20:01 Diltiazem HCl (Cardizem) 10 mg STAT STAT IV 07/02/19 09:02 07/02/19 09:14 DC 07/02/19 09:29 Diltiazem HCl (Cardizem) 30 mg Q6H PO 07/02/19 06:00 07/02/19 09:13 DC Diltiazem HCl 125 mg/Sodium Chloride 125 ml @ 5 mls/hr Q24H IV 06/30/19 05:00 06/30/19 08:46 DC 06/30/19 05:39 Docusate Sodium (Colace) 100 mg BID PO 06/29/19 21:00 06/30/19 10:43 Enoxaparin Sodium (Lovenox) 60 mg Q24H SC 06/30/19 06:00 06/30/19 08:54 DC 06/30/19 06:24 Formoterol Fumarate (Perforomist) 20 mcg RBID INH 07/03/19 20:00 07/03/19 20:10 Heparin Sodium (Porcine) (Heparin) ASDIRECTED PRN IV SEE LABEL COMMENTS 07/01/19 11:15 07/02/19 17:14 DC Heparin Sodium (Porcine) (Heparin) 5,000 units Q12H SC 06/29/19 21:00 06/30/19 04:46 DC 06/29/19 20:48 Heparin Sodium (Porcine) (Heparin) 5,000 units Q12H SQ 06/30/19 21:00 07/01/19 10:36 DC 07/01/19 09:30 Heparin Sodium (Porcine) (Heparin) 5,000 units Q12H SQ 07/03/19 09:00 07/03/19 08:19 Heparin Sodium (Porcine) 83502 units/IV Miscellaneous Supplies 250 ml @ 0 mls/hr Q0M IV 07/01/19 10:32 07/02/19 17:26 DC 07/01/19 13:01 Home Med (Med Rec Complete!) ASDIRECTED XX 06/29/19 14:00 06/29/19 14:35 DC Hydrocortisone (A-Hydrocort) 100 mg Q6H IV 07/02/19 12:00 07/03/19 17:19 Ketorolac Tromethamine (ToRADol) 30 mg Q6H IV 06/29/19 16:00 06/30/19 13:43 DC 06/30/19 10:47 Levalbuterol HCl (Xopenex Neb) 1.25 mg Q2HP PRN NEB WHEEZING 06/29/19 14:15 06/30/19 11:34 Levalbuterol HCl (Xopenex Neb) 1.25 mg RQ6H NEB 06/29/19 20:00 07/03/19 13:42 Lorazepam (Ativan) 1 mg Q6HP PRN IV ANXIETY/AGITATION 07/02/19 17:15 Magnesium Hydroxide (Milk Of Magnesia) 30 ml DAILY PO 06/30/19 09:00 06/30/19 10:44 Meropenem 1 gm/IV Miscellaneous Supplies 50 ml @ 100 mls/hr Q12H IV 07/03/19 10:00 07/03/19 12:27 Metoprolol Tartrate (Lopressor) 5 mg STAT STAT IV 07/01/19 13:33 07/01/19 13:35 DC 07/01/19 13:51 Miscellaneous (Unresolved Clarification Entry) SEE LABEL COMMENTS DAILY XX 06/30/19 09:00 06/30/19 08:58 DC Montelukast Sodium (Singulair) 10 mg QHS PO 06/29/19 21:00 07/03/19 15:01 DC 07/01/19 20:02 Montelukast Sodium (Singulair) 10 mg QHS PO 07/03/19 21:00 Non-Formulary Medication (Heparin Iv Rate Change Documentation ml/ Hr) ASDIRECTED XX 07/01/19 11:15 07/02/19 17:14 DC 07/02/19 13:36 Ondansetron HCl (ZOFRAN INJection) 4 mg Q4HP PRN IV NAUSEA 06/29/19 14:15 07/03/19 19:13 Oxycodone/ Acetaminophen (Percocet 5mg/ 325mg Tablet) 1 tab Q4HP PRN PO MODERATE PAIN (PS 5-7) 06/29/19 14:15 Oxycodone/ Acetaminophen (Percocet 5mg/ 325mg Tablet) 2 tab Q4HP PRN PO SEVERE PAIN (PS 8-10) 06/29/19 14:15 Pantoprazole Sodium (Protonix) 40 mg DAILY IV 07/02/19 09:00 07/03/19 08:19 Pantoprazole Sodium (Protonix) 40 mg DAILY PO 06/29/19 09:00 07/02/19 08:08 DC 07/01/19 09:29 Phenylephrine HCl 50 mg/Dextrose 500 ml @ 9 mls/hr Q24H IV 06/30/19 08:00 Hold 06/30/19 20:04 Piperacillin Sod/ Tazobactam Sod 4.5 gm/Dextrose 50 ml @ 50 mls/hr Q6H IV 06/30/19 06:00 07/03/19 09:48 DC 07/03/19 05:51 Potassium Chloride/Dextrose/ Sod Cl 1,000 ml @ 75 mls/hr [id number] IV 06/29/19 14:12 06/29/19 23:44 DC 06/29/19 15:54 Sodium Chloride 1,000 ml @ 200 mls/hr Q5H IV 06/30/19 07:15 07/02/19 07:58 DC 07/02/19 06:32 Sodium Chloride (Saline Lock Flush) 2 ml ASDIRECTED PRN IV SEE LABEL COMMENTS 06/29/19 23:45 07/03/19 13:55 DC Sodium Chloride (Saline Lock Flush) 2 ml SLF IV 06/30/19 06:00 07/03/19 13:55 DC 07/03/19 05:51 Sodium Chloride (Sodium Chloride 3% Neb Jina) 3 ml RQ4H INH 06/30/19 12:00 07/01/19 07:42 DC 07/01/19 01:05 Tiotropium [place] (Spiriva Handihaler) 1 inhalation QHS@2000 INH 06/29/19 20:00 07/03/19 07:59 Vancomycin HCl 1000 mg/IV Miscellaneous Supplies 1 each/ Dextrose 270 ml @ 270 mls/hr Q12H IV 07/02/19 11:30 07/02/19 12:15 DC Vancomycin HCl 1000 mg/IV Miscellaneous Supplies 1 each/ Dextrose 270 ml @ 270 mls/hr Q18H IV 07/03/19 07:00 07/03/19 10:50 DC 07/03/19 06:37 Vancomycin HCl 1000 mg/IV Miscellaneous Supplies 1 each/ Dextrose 270 ml @ 270 mls/hr Q24H IV 07/04/19 07:00 Verapamil HCl (Calan) 40 mg Q8H PO 07/02/19 14:00 07/02/19 17:04 DC Vitamin D (Vitamin D) 4,000 units QHS PO 06/29/19 21:00 07/01/19 20:01 Allergies Allergies: Coded Allergies: Sulfa (Sulfonamide Antibiotics) (Verified Allergy, Intermediate, SWELLING, 04/13/19) ranitidine (Verified Adverse Reaction, Unknown, NAUSEA / VOMITTING, 1 08/30/18) Physical Examination General Exam: Alert, No Acute Distress EYE EXAM: PERRLA, Conjunctiva & lids normal, EOMI; No: Sclera icteric Male Exam: Normal Genital Exam Vital Signs/I&O Vital Signs Date Time Temp Pulse Resp B/P (MAP) Pulse Ox O2 Delivery O2 Flow Rate FiO2 07/03/19 18:00 123 144/67 (92) 93 High Flow Cannula 5.0 07/03/19 16:00 98.5 22 I&O- Last 24 Hours up to 6 AM 07/03/19 06:00 Intake Total 1301.2 ml Output Total 1765 ml Balance -463.8 ml Laboratory Data 24H Labs Laboratory Tests 2 07/03/19 05:47: Immature Granulocyte % (Auto) 2.1, Neutrophils (%) (Auto) 90.7H, Lymphocytes (%) (Auto) 4.8L, Monocytes (%) (Auto) 2.2, Eosinophils (%) (Auto) 0.0, Basophils (%) (Auto) 0.2, Neutrophils # (Auto) 18.0H, Lymphocytes # (Auto) 1.0L, Monocytes # (Auto) 0.4, Eosinophils # (Auto) 0.0, Basophils # (Auto) 0.0, Nucleated Red Blood Cells % (auto) 0.2H, Anion Gap 7L, Glomerular Filtration Rate 46.8, Calcium Level 6.4L, Phosphorus Level 3.2#, Magnesium Level 1.8 CBC/BMP Laboratory Tests 07/03/19 05:47 Microbiology Microbiology 06/30/19 Gram Stain - Final, Complete 06/30/19 Sputum Culture - Final, Complete Yeast Like Organism 06/30/19 Blood Culture - Preliminary, Resulted No Growth after 72 hours. All specime... Assessment Patient with artificial urinary sphincter, need for Samuels catheter. This is a complex Samuels catheter placement. Urinary sphincter was deactivated following the manufacture directions that were provided by the patient's . The sphincter was deactivated with difficulty and several attempts. A [address] catheter was place with the respiratory therapist assistant is of Xylocaine jelly. Samuels catheter drained clear urine and it was placed to gravity drainage. Plan Leave Samuels catheter to gravity drainage Removed the Samuels catheter as soon it is no longer necessary. To Re-activate the sphincter push the pump hard. This should be done once the Samuels catheter is removed. Leaving the Samuels catheter can result in erosion of the balloon of the artificial sphincter that is around the urethra. Time Spent on Consult: Time Spent / Consult (Minutes): 33 DELGADO WINCHESTER MD Jul 03, 2019 20:39
[2019-07-03] MEDS: VITAMIN D 1,000 INTERNATIONAL UNITS TABLET PO SCH (20:55)
[2019-07-03] MEDS ORDERED: MONTELUKAST 10 MG TAB PO SCH (21:00)
[2019-07-04] VITALS (10 sets, daily range): BP systolic 67–145; BP diastolic 42–72
[2019-07-04] MEDS: LEVALBUTEROL 1.25 MG/0.5 ML CONCENTRATE NEB NEB SCH ×2 (01:39→08:00)
[2019-07-04] MEDS ORDERED: NOREPINEPHRINE 4 MG/4 ML AMP As Ordered ONE (05:06)
[2019-07-04] MEDS ORDERED: MORPHINE 2 MG/ML 1ML VIAL (J2270) As Ordered ONE (05:20)
[2019-07-04 05:25] LABS: BASO # 0.1 10^3/uL (0.0-0.2); BASO % 0.3 % (0.0-1.0); HEMATOCRIT 46.2 % (42.0-52.0); HEMOGLOBIN 14.1 g/dl (13.5-17.5); LYMPH # 0.7 10^3/uL (1.5-5.0); LYMPH % 3.4 % (24.0-44.0); MEAN CORPUSCULAR HEMOGLOBIN 31.8 pg (27.0-33.0); MEAN CORPUSCULAR HGB CONC 30.5 g/dl (32.0-36.5); MEAN CORPUSCULAR VOLUME 104.1 fl (80.0-96.0); MONO # 0.4 10^3/uL (0.0-0.8); MONO % 1.7 % (0.0-5.0); NEUTROPHILS # 19.4 10^3/uL (1.5-8.5); NEUTROPHILS % 92.9 % (36.0-66.0); PLATELET COUNT, AUTOMATED 158 10^3/uL (150-450); RED BLOOD COUNT 4.44 10^6/uL (4.30-6.10); WHITE BLOOD COUNT 20.9 10^3/uL (4.0-10.0)
[2019-07-04] MEDS ORDERED: SCOPOLAMINE 1MG TRANSDERMAL PATCH TOP PRN (05:30)
[2019-07-04] MEDS ORDERED: ONDANSETRON 4MG/2ML VIAL (J2405) IV PRN (05:30)
[2019-07-04] MEDS ORDERED: LORazepam 2 MG/ML VIAL (J2060) IV PRN (05:30)
[2019-07-04] MEDS: MORPHINE 2 MG/ML 1ML VIAL (J2270) IV PRN ×2 (05:32→07:44)
[2019-07-04] MEDS ORDERED: NOREPINEPHRINE BITARTRATE 8 MG in D5W 492 ML IV SCH (05:45)
[2019-07-04] MEDS: BENZONATATE 100 MG CAP PO SCH (05:47)
[2019-07-04] MEDS: AMIODARONE 200 MG TAB (PACERONE) PO SCH (05:47)
[2019-07-04] MEDS: HYDROCORTISONE 100 MG/2 ML VIAL (J1720 PER 1) IV SCH (05:48)
[2019-07-04 05:50] LABS: CALCIUM LEVEL 6.3 MG/DL (8.8-10.2); CREATININE FOR GFR 3.01 MG/DL (0.70-1.30); GLOMERULAR FILTRATION RATE 21.7 (>42); MAGNESIUM LEVEL 2.5 MG/DL (1.8-2.4); PHOSPHORUS LEVEL 8.2 MG/DL (2.5-4.9); POTASSIUM SERUM 4.7 MEQ/L (3.5-5.1)
[2019-07-04] MEDS ORDERED: VANCOMYCIN HCL 1,000 MG, VIAL MATE ADAPTER 1 EACH in D5W 250 ML IV SCH (07:00)
--- NOTE | 2019-07-04 07:00 | IPNPDOC ---
Date Seen The patient was seen on 07/04/19. Progress Note I was called at bedside around 5:11am because the patient started to decompensate they were unable to get pulse ox reads. The patient started to have agonal breaths. Discussions were made with the family about DNR/DNI versus SENIOR MASTER SCHEDULER. After the daughter was called and all questions were answered it was decided to make the patient SENIOR MASTER SCHEDULER. The was adamant that she does not want her to be in pain and would like him to get his morphine if he is SENIOR MASTER SCHEDULER. SENIOR MASTER SCHEDULER orders were placed at 5:20 and morphine was given. VS, I&O, 24H, Fishbone Vital Signs/I&O Vital Signs Date Time Temp Pulse Resp B/P (MAP) Pulse Ox O2 Delivery O2 Flow Rate FiO2 07/04/19 05:42 14 07/04/19 05:25 122/56 (78) 07/04/19 05:22 110 97 High Flow Cannula 07/04/19 04:00 7.0 07/04/19 00:30 99.0 I&O- Last 24 Hours up to 6 AM 07/04/19 06:00 Intake Total 555 ml Output Total 1842 ml Balance -1287 ml Laboratory Data 24H LABS Laboratory Tests 2 07/04/19 05:13: Immature Granulocyte % (Auto) 1.7, Neutrophils (%) (Auto) 92.9H, Lymphocytes (%) (Auto) 3.4L, Monocytes (%) (Auto) 1.7, Eosinophils (%) (Auto) 0.0, Basophils (%) (Auto) 0.3, Neutrophils # (Auto) 19.4H, Lymphocytes # (Auto) 0.7L, Monocytes # (Auto) 0.4, Eosinophils # (Auto) 0.0, Basophils # (Auto) 0.1, Nucleated Red Blood Cells % (auto) 1.0H, Anion Gap 11, Glomerular Filtration Rate 21.7L, Calcium Level 6.3L, Phosphorus Level 8.2#H, Magnesium Level 2.5H CBC/BMP Laboratory Tests 07/04/19 05:13 Microbiology Microbiology 06/30/19 Gram Stain - Final, Complete 06/30/19 Sputum Culture - Final, Complete Yeast Like Organism 06/30/19 Blood Culture - Preliminary, Resulted No Growth after 72 hours. All specime... GME ATTESTATION GME ATTESTATION My faculty preceptor for this patient encounter was physically present during the encounter and was fully available. All aspects of the patient interview, examination, medical decision making process, and medical care plan development were reviewed and approved by the faculty preceptor. The faculty preceptor is aware and concurs with the plan as stated in the body of this note and will attest to such by his/her cosignature. ATTENDING NOTE I reviewed 's note and agree with the findings as documented. DELICIA CASTILLO DO Jul 04, 2019 07:00 KAIA AGUILAR MD Jul 10, 2019 20:32
[2019-07-04 07:46] LABS: VANCOMYCIN RANDOM 17.7 UG/ML
[2019-07-04] MEDS: FORMOTEROL FUMARATE 20 MCG/2 ML INHALATION SOLUTION (PERFOROMIST) INH SCH (08:00)
[2019-07-04] MEDS: BUDESONIDE 0.5 MG/2 ML INHALATION SUSPENSION INH SCH (08:00)
[2019-07-04] MEDS: MOM 30ML SUSPENSION UDC PO SCH (09:00)
[2019-07-04] MEDS: HEPARIN SOD (PORCINE) 5000 UNITS/ML VIAL SQ SCH (09:00)
[2019-07-04] MEDS: DOCUSATE SODIUM 100 MG CAP PO SCH (09:00)
[2019-07-04] MEDS: PANTOPRAZOLE 40MG INJ (PROTONIX) (C9113) IV SCH (09:00)
[2019-07-04] MEDS: TIOTROPIUM INHALER/CAPSULE (SPIRIVA) INH SCH (09:18)
[2019-07-04] MEDS: MEROPENEM INJ 1 GM in IV 1 EA IV SCH (10:00)
--- NOTE | 2019-07-04 11:47 | DS.PDOC ---
Discharge Summary General Date of Admission Jun 30, 2019 at 08:21 Date of Discharge 07/04/2019 Attending Physician: NEO LOZADA MD Discharge Summary PROCEDURES PERFORMED DURING STAY: None. ADMITTING DIAGNOSES: 1. Tension pneumothorax. DISCHARGE DIAGNOSES: 1. Tension pneumothorax, aspiration pneumonia, septic shock. COMPLICATIONS/CHIEF COMPLAINT: Post Stem Cell Transplant,Assess For Resp To [facility]. 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 After insertion of left-sided chest tube, patient ate dinner and subsequently aspirated, admitted to the ICU with septic shock secondary to aspiration pneumonia/pneumonitis. Patient treated with vasopressors, antibiotics and IV fluids, underwent swallow eval which he passed, reaspirated the following night. Patient's course was also complicated by multifocal atrial tachycardia secondary to severe lung disease, treated with amiodarone. Patient was evaluated by infectious disease and cardiology during his hospitalization. Patient seemed to have been on well yesterday during the day, NG tube was inserted and tube feeds started with plan for PEG placement later. Patient decompensated overnight, had agonal breathing and became hypotensive, family decided to make the patient comfort measures only. Patient was seen in the morning today, with minimal breathing, patient shortly after my assessment. HOSPITAL COURSE: As above. DISPOSITION: 20 . TIME SPENT ON DISCHARGE: Greater than 20 minutes. Vital Signs/I&Os Vital Signs Date Time Temp Pulse Resp B/P (MAP) Pulse Ox O2 Delivery O2 Flow Rate FiO2 07/04/19 07:54 14 Nasal Cannula 07/04/19 05:25 122/56 (78) 07/04/19 05:22 110 97 07/04/19 04:00 7.0 07/04/19 00:30 99.0 I&O- Last 24 Hours up to 6 AM 07/04/19 06:00 Intake Total 555 ml Output Total 1842 ml Balance -1287 ml Laboratory Data Labs 24H Laboratory Tests 2 07/04/19 05:13: Immature Granulocyte % (Auto) 1.7, Neutrophils (%) (Auto) 92.9H, Lymphocytes (%) (Auto) 3.4L, Monocytes (%) (Auto) 1.7, Eosinophils (%) (Auto) 0.0, Basophils (%) (Auto) 0.3, Neutrophils # (Auto) 19.4H, Lymphocytes # (Auto) 0.7L, Monocytes # (Auto) 0.4, Eosinophils # (Auto) 0.0, Basophils # (Auto) 0.1, Nucleated Red Blood Cells % (auto) 1.0H, Anion Gap 11, Glomerular Filtration Rate 21.7L, Calcium Level 6.3L, Phosphorus Level 8.2#H, Magnesium Level 2.5H, Random Vancomycin Level 17.7 CBC/BMP Laboratory Tests 07/04/19 05:13 Microbiology Microbiology 06/30/19 Gram Stain - Final, Complete 06/30/19 Sputum Culture - Final, Complete Yeast Like Organism 06/30/19 Blood Culture - Preliminary, Resulted No Growth after 72 hours. All specime... Discharge Medications Scheduled Budesonide/Formoterol (Symbicort 160-4.5 Mcg Inhaler) 6 Gm Hfa.aer.ad, 2 PUFF INH BID, (Reported) Cholecalciferol (Vitamin D3) (Vitamin D3) 2,000 Unit Cap, 4,000 UNIT PO QHS, (Reported) Denosumab Injection (Prolia) 60 Mg/1 Ml Syringe, 60 MG SC ASDIRECTED, (Reported) EVERY SIX MONTHS Montelukast Sodium (Singulair) 10 Mg Tablet, 10 MG PO QHS, (Reported) Tiotropium [place] Monohydrate (Spiriva) 18 Mcg Cap.w.dev, 18 MCG INH QHS, (Reported) Scheduled PRN Acetaminophen (Tylenol Extra Strength) 500 Mg Tablet, 500 MG PO QID PRN for PAIN, (Reported) Loperamide HCl (Imodium A-D) 2 Mg Capsule, 2 MG PO PRN PRN for DIARRHEA, (Reported) Ondansetron HCl (Zofran) 8 Mg Tab, 8 MG PO TID PRN for NAUSEA OR VOMITING, (Reported) Polyvinyl Alcohol (Akwa Tears) 1.4 % Jina, 2 DROP OU QID PRN for DRY EYES, (Reported) Saliva Substitute Combo No.9 (Biotene) 237 Ml Mouthwash, 1 LIQ MT PRN PRN for DRY MOUTH, (Reported) Tramadol HCl (Tramadol HCl) 50 Mg Tab, 50 MG PO QID PRN for PAIN, (Reported) Allergies Coded Allergies: Sulfa (Sulfonamide Antibiotics) (Verified Allergy, Intermediate, SWELLING, 04/13/19) ranitidine (Verified Adverse Reaction, Unknown, NAUSEA / VOMITTING, 06/29/19) NEO LOZADA MD Jul 04, 2019 11:47
--- NOTE | 2019-07-04 21:52 | CR ---
DATE OF CONSULTATION: 07/04/2019 (Late entry). CARDIOLOGY CONSULTATION REFERRING PHYSICIAN: Dr. Viviane Emery INDICATION: Atrial tachyarrhythmia with rapid ventricular response. CLINICAL SUMMARY: This 73-year-old, , father of three grown children, retired resident of [place] is known to my cardiology practice with coronary artery disease status post remote IWMI and stenting procedures 1996 and 2006, hypertension, obstructive sleep apnea and echocardiographic evidence of preserved left ventricular systolic function, mild left ventricular diastolic dysfunction and at least mild pulmonary arterial hypertension dating back to 2008. Last stress study November 2018 pharmacological stress heart scan showed no inducible chest pain, EKG change or heart scan evidence of myocardial ischemia. 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 One week prior to his admission, 06/29/2019, he had been having increasing shortness of breath and cough. With his immunosuppression he was concerned with a possibility of having infection and saw Dr. Marroquin, oncology. Chest CT scan showed a large left spontaneous pneumothorax with mediastinal shift, pneumomediastinum and small right pneumothorax superimposed on underlying emphysema, bronchiectasis, scarring and fibrosis of his left upper lobe, right middle lobe and right lower lobe. His prompt admission was arranged with Dr. Christopher Andrade, thoracic surgery and a chest tube was placed in the lateral left chest with good effect. EKG at the time of his admission showed multifocal atrial tachycardia with rapid ventricular response averaging 161 beats per minute that was misinterpreted as atrial fibrillation on the official report. An echocardiogram, which proved to be technically difficult in light of the patient's pulmonary problems, but showed a normal left ventricle size, wall thickness but obvious septal wall motion abnormality due to right ventricular pressure overload. No more than mild LV systolic dysfunction. Left atrial size was normal. His right ventricle was at least mildly dilated with Doppler evidence of moderately severe pulmonary hypertension. His right atrium was moderately dilated and IVC was normal in size with reduced respiratory collapse in keeping with elevated central venous pressure. He had moderately severe aortic valvular sclerosis with no more than mild stenosis and mild degenerative changes of the mitral valvular apparatus without functional abnormality. His thoracic aorta was slightly dilated. Followup chest x-rays and chest CT scan showed evidence of superimposed bilateral consolidations developing since his prior CT scan 06/29/2019. His left-sided pneumothorax was significantly improved. Cardiology consultation was placed but I was not notified of the consultation until 07/02/2019. The indication was to help with management of his atrial tachyarrhythmia that Jaja to respond to prior digoxin and diltiazem IV infusion. With his complicated pulmonary problems and severe pulmonary hypertension, I emphasized his extremely guarded prognosis with Dr. Davenport, hospitalist, his primary provider at that time. I strongly recommended this be frankly discussed this with the patient and his family. I indicated that it was unlikely his cor pulmonale could be fixable and would encourage DNR. I explained His arrhythmia was a manifestation of his advanced pulmonary problems and management of this rhythm disturbance was to ensure optimal pulmonary care. The cautious use of low-dose for verapamil, (the drug of choice for this particular arrhythmia) was suggested and should this if this prove ineffective then amiodarone antiarrhythmic therapy may be tried. Verapamil did not slow his rhythm but amiodarone administered intravenously was successful in slowing his rate and subsequently converting him to sinus rhythm. EKG 07/03/2019 showed sinus tachycardia at 115 bpm with PACs versus ongoing multifocal atrial tachycardia. Repolarization abnormalities had improved. EKG otherwise showed evidence of his pulmonary disease with low limb voltages. Unfortunately, despite combination controlled supplemental oxygen, bronchodilator, combination parenteral antibiotic therapy and worship of a sinus rhythm, he continued to have at least low grade temperature with steadily worsening leukocytosis. Early this morning, related to his respiratory difficulties and ongoing infection, he became Increasingly hypotensive with further O2 desaturation peripherally. His and daughter were made aware of his decompensating condition and elected to make the patient comfort care only with morphine administration for distress. He earlier Today. [facility]
--- NOTE | 2019-07-05 13:05 | CR ---
INFECTIOUS DISEASE CONSULTATION DATE OF CONSULTATION: 07/03/2019 REASON FOR CONSULTATION: I was asked to consult by hospitalist for evaluation of pneumonia in a patient who was admitted with a pneumothorax. HISTORY OF PRESENT ILLNESS: Mr. Culp is a pleasant 73-year-old gentleman with a history of stem-cell transplantation for AML 5 years ago and has been in remission. The patient had a course complicated by hanhk-yvhuak-kmqh disease manifesting as skin and GI manifestations. The patient had been off all immunosuppressive therapy in August 2018 and has been doing well. For the past month he has had increasing cough and mild increase in shortness of breath. He was seen by his primary care provider, Dr. Sanchez, who felt it was possibly related to reflux and he was given ranitidine. After he took that medication he had 3 days of nausea and vomiting, so his discontinue the medication. His cough persisted and he tried the medication again and he had the similar nausea and vomiting. The patient has lost about 10 pounds. He had progressively gotten worse with a cough and shortness of breath and therefore he had a chest CT that was done about 3 weeks ago at [facility] and a followup chest CT to see if the abnormalities on his CT was getting worse to make sure that he did not have xspqs-[id number]-apff disease, but instead he was noted to have a large left-sided pneumothorax with mediastinal shift, and a very small sliver of right pneumothorax and mediastinal emphysema. The patient was admitted by Dr. Andrade and had a chest tube placed. He improved but that night he had nausea and vomiting. The next day he developed pneumonia and the patient was started on broad-spectrum antibiotics. The patient did not improve markedly and slowly has continued to deteriorate. He had multifocal tachyarrhythmia. He was treated with amiodarone. PAST MEDICAL HISTORY: Significant for: AML with ivyls-pywmcd-pntj disease manifested as skin hypo and hyper-pigmentation.GI involvement diarrhea treated with steroids and sirolimus but these were discontinued very slowly and completely by August 2018. History of esophageal reflux disease. History of remote myocardial infarction. He quit smoking in the 70s. Chronic obstructive pulmonary disease (COPD). Right sided pulmonary hypertension. History of prostate cancer with radiation and salvage prostatectomy in 2012. Status post urinary sphincter placement. SURGERIES: Two hernias bilateral. Retinal detachment MEDICATIONS: - Tylenol as needed - Symbicort 165/4.5 two puffs twice a day - vitamin D3 4000 units nightly - Prolia 60 mg subcu every 6 months - loperamide 2 mg - Singulair 10 mg daily - Zofran 8 mg three times a day - artificial tears - biotene mouthwash - Spiriva 18 mcg one inhalation daily - tramadol 50 mg four times a day OCCUPATIONAL HISTORY: He owns a carpet store. No asbestos exposure. He does not have any dogs or birds. He has a cat at home. REVIEW OF SYSTEMS: He had low grade fever, no chills. He denied any blurry vision. No chest pain. He has shortness of breath and no chronic cough, mostly nonproductive. He had nausea, reflux and vomiting. No abdominal pain, hematemesis or hematochezia. No upper or lower extremity weakness. PHYSICAL EXAMINATION: On physical exam he is a frail elderly gentleman in mild respiratory discomfort. Pupils equal and reactive. Neck is supple with no jugular venous distention (JVD). No bruits. Mouth: Dry mucous membranes. Lungs: Decreased breath sounds bilaterally. No wheezes or rhonchi appreciated. Left-sided central line and left-sided chest tube in place. Heart: Normal S1-S2 irregular. No murmurs. Abdomen: Soft, nontender. No hepatosplenomegaly. Extremities: No clubbing, cyanosis or edema. No calf tenderness. Skin: Multiple hypo and hyper-pigmented lesions on his upper thighs. A few scabs on his lower legs. No open lesions or infection. No rashes. Neurologic exam normal. LABORATORIES: White count 19.8, hemoglobin 13, hematocrit 40, platelets 172, 90% neutrophils, 5% lymphocytes, 2% monocytes. Sodium 148, potassium 3.5, chloride 116, bicarb 25, BUN 31, creatinine 1.55, glucose 141, calcium 6.4, phosphorus 3.2, magnesium 1.8, BNP 1616, troponin less than 0.02 times three on 06/30. Procalcitonin was 6.11 on 06/30. TSH 0.559. Microbiology: Blood culture onset set was no growth after 72 hours and sputum had yeastlike organism. No other pathogens identified. IMAGING: On 06/29, chest CT had a large left pneumothorax with contralateral mediastinal shift. Mediastinum small right pneumothorax and emphysematous changes and chronic pleural parenchymal changes with subtle infiltrates. Chest CT done on 06/30 showed that the left-sided pneumothorax had markedly improved. Bilateral lower lobe consolidations were noted. Chest x-ray done on 07/03 showed a left chest tube in place. A left IJ line with tip in the SVC. No significant change from prior exam. No obvious left pneumothorax noted. ALLERGIES: 1. SULFA. 2. RANITIDINE. MEDICATIONS: - vancomycin 1 gram IV every 24 hours - meropenem 1 gram IV every 12 hours - Tylenol as needed - hydrocortisone 100 mg IV every 6 hours as needed - pantoprazole 40 mg IV daily - alprazolam 0.25 mg by mouth three times a day as needed - benzonatate 200 mg by mouth every 8 hours - vitamin D 4000 units at bedtime - Xopenex every 6 hours as needed - Spiriva one inhalation daily - Zofran as needed - Percocet 1-2 tablets as needed IMPRESSION: Mr. Clup is a 73-year-old gentleman with a history of AML and oamwj-kndyau-tpdo disease in remission without any immunosuppressive therapy since August of 2018 who presented with a one month history of cough, nausea and vomiting, possibly reflux, abnormal chest CT noted according to his from about 3 weeks ago. The patient admitted with a pneumothorax that was felt to be related to his coughing, has developed aspiration pneumonia after his hospitalization with worsening fever up to 102.9, leukocytosis. The patient had deterioration in spite of being on broad-spectrum antibiotics with IV vancomycin and meropenem, which would be adequate coverage for hospital associated pneumonia or aspiration pneumonia. The patient has yeast in his sputum, which would not be the cause of his presentation. There is no need for antifungal treatment for coverage of this pneumonia. The patient may have oahoe-tnuini-ctpm disease that had started about 4 weeks ago when he started having this chronic cough with nausea and vomiting and therefore this is being treated with IV steroids. PLAN Case has been discussed with Dr. Davenport who already had discussed the case with his principal scientist/oncologist. Dr. Marroquin is also his principal scientist/oncologist in [facility] and has seen the patient. He is also followed up by cardiology. At this point I do not see any need to change his antibiotics or any further recommendation in his care. Thank you for consultation. If the patient does not clinically improve then may need consultation with pulmonary for bronchoscopy to rule out any other possible fungal infection or hkxpy-nixofk-qvuu disease and at that point would recommend discussion with [facility] where he gets his care for his AML. SCOTTIE
== END 2019-07-04 09:44 | disposition expired | DRG 199 ==
LOC: M RAD 12:05 → M PCU 14:29 → M ICU 06-30 05:30 → M RAD 06-30 08:20 → M ICU 06-30 08:21
PROVIDERS: ADMIT Thoracic Surgery (Cardiothoracic Vascular Surgery); ATTEND Internal Medicine
DX: J93.0 Spontaneous tension pneumothorax (principal); A41.9 Sepsis, unspecified organism; J69.0 Pneumonitis due to inhalation of food and vomit; R65.21 Severe sepsis with septic shock; I48.92 Unspecified atrial flutter; E87.2 Acidosis; Z94.84 Stem cells transplant status; D89.811 Chronic graft-versus-host disease; C92.00 Acute myeloblastic leukemia, not having achieved remission; N17.9 Acute kidney failure, unspecified; I47.1 Supraventricular tachycardia; J98.2 Interstitial emphysema; Z88.2 Allergy status to sulfonamides; Z88.8 Allergy status to other drugs, medicaments and biological substances; Z85.46 Personal history of malignant neoplasm of prostate; Z87.891 Personal history of nicotine dependence; I25.2 Old myocardial infarction; K21.9 Gastro-esophageal reflux disease without esophagitis; Z79.899 Other long term (current) drug therapy; I48.91 Unspecified atrial fibrillation; J44.9 Chronic obstructive pulmonary disease, unspecified; I27.20 Pulmonary hypertension, unspecified